=== PATIENT | male | born 1955 | race Caucasian/White ===

== ENCOUNTER 2018-04-30 16:10 | Observation (INO) | payer BC, SELFPAY ==
[2018-04-30 16:11] VITALS: BP 143/83; PULSE 95; RESP 16; TEMP 37.8; O2SAT 98; BMI 33.5
--- NOTE | 2018-04-30 16:25 | CT_ITS ---
STUDY: CT ABDOMEN AND PELVIS WITH CONTRAST REASON FOR EXAM: Male, 63 years old. Painless jaundice RADIATION DOSAGE (If Supplied By Facility): CTDIvol = ( 16.56 ) mGy, DLP = ( 1285.93 ) mGycm TECHNIQUE: Transaxial images were obtained from the dome of the diaphragm to the symphysis pubis without oral contrast. 100 ml of Isovue 300 contrast was administered. Sagittal and coronal images were reconstructed. Individualized dose optimization techniques were used for this CT. COMPARISON: None. FINDINGS: The visualized lung bases are unremarkable. The visualized portions of the heart are within normal limits. Normal liver. There is a questionable 2.2 cm nodular density adjacent to the caudate lobe. Mild wall thickening of the gallbladder with mucosal enhancement. No significant dilatation of the extrahepatic biliary system. Normal spleen. Normal pancreas. Normal bilateral adrenal glands. Up to 7.1 cm cysts are noted in the right kidney. 6 mm cyst in the left kidney. Small hiatal hernia. Normal small intestine. Mild diverticulosis of colon. The appendix is visualized and appears normal. Calcified abdominal aorta. Normal inferior vena cava. Subcentimeter nodes in the retroperitoneum. Normal urinary bladder. Trace pelvic fluid. Small fatty umbilical hernia. Mild degenerative vertebral changes. Spondylolysis of L5. CT/Abdomen/Pelvis W IV Cont ONLY IMPRESSION: Mild wall thickening of the gallbladder. Questionable nodular density adjacent to the caudate lobe of the liver. Mild colonic diverticulosis. Bilateral renal cysts. Small hiatal hernia. Small fatty umbilical hernia. Trace pelvic fluid. Electronically Signed: Alan Christopher DO at 18:34 EDT Tel [phone], Service support ,
--- NOTE | 2018-04-30 16:30 | ED.VISSUMM ---
- ER Visit Summary Date of Service: 04/30/18 Chief Complaint: Malaise and low-grade fever. History of Present Illness: The patient is a 63 M past medical history of reflux, elevated cholesterol and hypothyroidism. Patient has never had any abdominal other major surgeries. The last week and this has not felt well. Low-grade fever and malaise. Rectal bleeding was seen and evaluated his primary care physician who did labs which showed elevated liver enzymes. Primary care physician wanted further evaluation of him in the ER. Patient denies abdominal pain. Physical Examination: Well-appearing older male. Vital signs are stable. He has a low-grade temperature 100.1. He does not look septic or toxic. He is in no acute distress. H EENT exam unremarkable. No scleral icterus. Moist mucous membranes. Neck nontender no lymphadenopathy. Lungs clear to auscultation bilaterally. Heart regular rate and rhythm no murmur. Abdomen is soft and nontender. Normal bowel sounds no peritoneal signs. He is moving all 4 extremities. They are neurovascularly intact. No jaundice. Neurologically is awake and alert with no focal motor deficits. Back nontender. Test Results: Count is 6. Hemoglobin of 15. Electrolytes unremarkable. Creatinine 1.2. Normal gap. Liver enzymes are elevated including total and direct bilirubin. Alkaline phosphatase, ALT and AST. Lipase is normal. CT the abdomen and pelvis with IV contrast only showed a thickened gallbladder wall. Questionable nodular density of the liver. Incidental finding of renal cysts, hiatal hernia and umbilical hernia. Emergency Department Course and Treatment: Gentleman with reportedly elevated liver enzymes and no abdominal pain. Labs and CT abdomen pelvis be obtained with IV contrast. Treatment Plan: Repeat exam patient is doing well. He is in no distress. He and I and his discussed his test results. He was planning on a trip [facility] tomorrow. I explained to him I thought it was important that he had this evaluated before he would leave town due to the elevated liver enzymes. I discussed with the evaluation options and general surgeons that were available. He has chose a surgeon superintendent recreation. I spoke to Dr. Nick Gonzalez he wants me and also obtain a right upper quadrant ultrasound. He wants the patient to be admitted to the hospitalist group and he will be evaluating the patient in consultation. Currently he is taking the case to the operating room and will be available when that is done. I spoke to the hospitalist will be down to see the patient for evaluation and admission. Disposition: Admission Impression: Elevated liver enzymes Thickened gallbladder wall rule out cholecystitis This note was generated with [employer] dictation software. It may contain incorrect words, spelling, and punctuation that were not noted in review of the chart prior to signing ED Disposition - Plan for ED Patient: Chief Complaint: Abn Labs Referrals: Kalyan Aj MD [Primary Care Provider] -
--- NOTE | 2018-04-30 16:33 | ED.DCSUM_ITS ---
- ER Visit Summary Date of Service: 04/30/18 Chief Complaint: Malaise and low-grade fever. History of Present Illness: The patient is a 63 M past medical history of reflux , elevated cholesterol and hypothyroidism. Patient has never had any abdominal other major surgeries. The last week and this has not felt well. Low-grade fever and malaise. Rectal bleeding was seen and evaluated his primary care physician who did labs which showed elevated liver enzymes. Primary care physician wanted further evaluation of him in the ER. Patient denies abdominal pain. Physical Examination: Well-appearing older male. Vital signs are stable. He has a low-grade temperature 100.1. He does not look septic or toxic. He is in no acute distress. H EENT exam unremarkable. No scleral icterus. Moist mucous membranes. Neck nontender no lymphadenopathy. Lungs clear to auscultation bilaterally. Heart regular rate and rhythm no murmur. Abdomen is soft and nontender. Normal bowel sounds no peritoneal signs. He is moving all 4 extremities. They are neurovascularly intact. No jaundice. Neurologically is awake and alert with no focal motor deficits. Back nontender. Test Results: Count is 6. Hemoglobin of 15. Electrolytes unremarkable. Creatinine 1.2. Normal gap. Liver enzymes are elevated including total and direct bilirubin. Alkaline phosphatase, ALT and AST. Lipase is normal. CT the abdomen and pelvis with IV contrast only showed a thickened gallbladder wall. Questionable nodular density of the liver. Incidental finding of renal cysts, hiatal hernia and umbilical hernia. Emergency Department Course and Treatment: Gentleman with reportedly elevated liver enzymes and no abdominal pain. Labs and CT abdomen pelvis be obtained with IV contrast. Treatment Plan: Repeat exam patient is doing well. He is in no distress. He and I and his discussed his test results. He was planning on a trip to the [facility] tomorrow. I explained to him I thought it was important that he had this evaluated before he would leave town due to the elevated liver enzymes. I discussed with the evaluation options and general surgeons that were available. He has chose a surgeon online content editor. I spoke to Dr. Nick Gonzalez he wants me and also obtain a right upper quadrant ultrasound. He wants the patient to be admitted to the hospitalist group and he will be evaluating the patient in consultation. Currently he is taking the case to the operating room and will be available when that is done. I spoke to the hospitalist will be down to see the patient for evaluation and admission. Disposition: Admission Impression: Elevated liver enzymes Thickened gallbladder wall rule out cholecystitis This note was generated with [employer] dictation software. It may contain incorrect words, spelling, and punctuation that were not noted in review of the chart prior to signing ED Disposition - Plan for ED Patient: Chief Complaint: Abn Labs Referrals: Kalyan Aj MD [Primary Care Provider] -
[2018-04-30 16:42] LABS: Absolute Lymphocyte Count 1.14 X10^3/ul (0.83-4.51); Absolute Neutrophil Count 2.1 X10^3/uL (2.0-7.7); Basophil# 0.13 X10^3/uL; Basophil% 2.1 % (0-1); Eosinophil# 1.52 X10^3/uL; Eosinophils% 24.7 % (0-5); Hematocrit 47.7 % (40-54); Hemoglobin 15.8 g/dl (13.0-16.5); Lymphocyte # 1.14 X10^3/ul (4.0); Lymphocyte % 18.5 % (19-41); Mean Corp Hgb Conc 33.1 g/gl (32-36); Mean Corpuscular Hgb 28.7 pg (27.0-32.0); Mean Corpuscular Volume 86.6 fL (80-94); Monocyte# 1.23 X10^3/uL; Neutrophil # 2.11 X10^3/uL (2.7-7.7); Neutrophil % 34.4 % (47-70); POSITIVE COUNT NO; POSITIVE DIFFERENTIAL NO; POSITIVE MORPHOLOGY NO; Platelet Count 159 K/mm3 (150-450); RBC Distribution Width CV 14.4 % (11.6-14.6); Red Blood Count 5.51 M/mm3 (4.6-6.2); White Blood Count 6.2 K/mm3 (4.4-11.0)
[2018-04-30 17:18] LABS: AST(SGOT) 1176 U/L (15-37); Alanine Aminotransfer ALT/SGPT 2381 U/L (16-61); Albumin, Serum 3.6 g/dL (3.2-5.0); Alkaline Phosphatase 416 U/L (45-117); Anion Gap 7 (5-15); BUN 18 mg/dL (7-18); BUN/Creat Ratio 14.1 RATIO (10-20); Bilirubin, Direct 1.62 mg/dL (0.00-0.30); Calcium,Total 8.4 mg/dL (8.5-10.1); Chloride 104 mmol/L (98-107); Creatinine, Serum 1.28 mg/dL (0.70-1.30); EST Glomerular Filtration Rate 60 mL/min (>60); Est Glom Filt Rate - Afr Amer 73 mL/min (>60); Estimated Creatinine Clearance 63.99 ml/min; Globulin 3.7 g/dL (2.2-4.2); Glucose 133 mg/dL (74-106); Lipase 296 U/L (73-393); Potassium 3.6 mmol/L (3.5-5.1); Protein, Total 7.3 g/dL (6.4-8.2); Sodium Level 137 mmol/L (136-145)
--- NOTE | 2018-04-30 17:18 | ED.RN ---
alt 2381 and ast 1176 called from the lab dr hewitt aware
[2018-04-30 18:04] LABS: Bacteria 0 SEEN /hpf (None Seen); Mucous, Urine 0 SEEN /hpf (<or=2+); Squamous Epithelial Cells - UA 0 SEEN /hpf (0-5); White Blood Cells 0 SEEN /hpf (0-5)
[2018-04-30 18:29] LABS: Color, Urine Amber (Yellow); Glucose, Dipstick Normal (Normal); Ketone-Dipstick Negative (Negative); Leukocyte Esterase-Dipstick 25 /ul (Negative); Nitrite-Dipstick Negative (Negative); Occult Blood-Urine 250 /ul (Negative); Protein-Dipstick 15 mg/dl (Negative); Urine Clarity Clear (Clear); Urine Urobilinogen 8 mg/dl (Normal)
[2018-04-30 18:36] LABS: Red Blood Cells-Urine 0-5 SEEN /hpf (0-5); Urine Bilirubin Dipstick 3 mg/dL (Negative)
--- NOTE | 2018-04-30 19:00 | PCM.HP.STD ---
Problem List (1) Acute cholecystitis Status: Acute (2) Hyperglycemia Status: Acute (3) Elevated liver enzymes Status: Acute (4) Hypothyroidism Status: Chronic Qualifiers: Hypothyroidism type: unspecified Qualified Code(s): E03.9 - Hypothyroidism, unspecified (5) Hyperlipidemia Status: Chronic Qualifiers: Hyperlipidemia type: unspecified Qualified Code(s): E78.5 - Hyperlipidemia, unspecified (6) GERD (gastroesophageal reflux disease) Status: Chronic History of Present Illness Date of Admission: 04/30/18 Chief Complaint: Abnormal Labs, Malaise The [facility] 63 [facility]/ PMHx: Hypothyroidism, Hyperlipidemia, GERD, Obesity who presents to the [facility] ED on 04/30/18 with history of general malaise, fatigue, decreased appetite as well as darkened urine and increased sleep for approximately 1 week without any associated fevers and chills nor nausea or emesis however he does note abdominal fullness with minimal oral intake. Patient was evaluated by his primary care physician secondary to these ongoing complaints and outpatient labs were obtained with remarkable elevated liver enzymes which he notes were previously appropriate as he has these checked annually for his concurrent usage of a statin and given the abnormality and ongoing symptoms he was directed to the emergency room per his primary care physician. Upon evaluation patient did have some scratch saavedra and upon further questioning did admit to recent increased pruritus over the last 1-2 days. Upon ED presentation vital signs with T 100.1, heart rate 95, BP 143/83, respiratory rate 16, 98% room air, CBC with WBC 6.2, hemoglobin 15.8, platelet 159 without market left shift, unremarkable lipase, CMP with glucose 133, total bilirubin 2.3, direct bilirubin 1.62, AST/ALT 1176/2381, urinalysis with mildly elevated specific gravity otherwise not market appearing, CT abdomen and pelvis with mild wall thickening of the gallbladder with questionable nodular density adjacent to the caudate lobe of the liver, mild colonic diverticulosis, bilateral renal cyst, small hiatal hernia, small fatty umbilical hernia, trace pelvic fluid. Dr. Gonzalez, surgeon was consulted per the emergency room secondary to concerns for acute cholecystitis as etiology for current presentation. Surgeon requested given atypical presentation without market pain admission to the medical service and he noted intention to evaluate the patient following his current operative interventions on the evening of presentation. IV fluids and Zosyn administered in the ED. Past Medical History Past Medical History (Chronic Problems): Chronic Problems Hypothyroidism (Chronic) Hyperlipidemia (Chronic) GERD (gastroesophageal reflux disease) (Chronic) Allergies No Known Allergies Allergy (Verified 04/30/18 16:14) Home Medications: Ambulatory Orders Medication Instructions Recorded Atorvastatin Calcium [Lipitor] 20 mg PO QHS 02/13/14 Levothyroxine [Synthroid] 112 mcg PO DAILY 02/13/14 Omeprazole [Prilosec] 20 mg PO DAILY 02/13/14 Surgical History: - - Dental extraction Psychiatric History: No pertinent psych hx Lives: Spouse/ Significant Other Smoking Status: Never smoker Tobacco Use: Non-smoker Alcohol: None Drugs: None - *Family History Maternal History Items: - - Mother with a history of late onset Alzheimer's disease. Paternal History Items: - - Father with a history of [place], coronary disease requiring AICD placement in his 80s. Review of Systems Constitutional: Reports: Anorexia, Malaise, Fatigue. Denies: Chills, Fever, Weight Change HEENT: Denies: Head Aches, Sinus Congestion, Sinus Drainage Cardiovascular: Denies: Chest Pain, Palpitations Respiratory: Denies: Cough, Shortness of breath at rest, Sputum production Gastrointestinal: Reports: - - Abdominal fullness sensation only. Denies: Abdominal Pain, Nausea, Vomiting Genitourinary: Reports: - - Dark appearing urine.. Denies: Dysuria Musculoskeletal: Denies: Joint Pain, Joint Tenderness Skin: Reports: - - Mild pruritus noted.. Denies: Rash, Wounds Neurological: Denies: Numbness, Tingling, Focal weakness Psychiatric: Denies: Anxiety, Depression, Homicidal Ideations, Suicidal Ideations Hematologic/ Lymphatic: Denies: Easy Bruising, Easy Bleeding VTE Information - Inpt Only VTE Present on Admission: No VTE Mechan Device Prophylaxis: SCD's VTE Pharm Prophylaxis ordered?: Yes Subjective: Seated upright in the ED bed, no acute distress, denies any ongoing discomfort. Objective: Physical Examination: General: awake, alert, oriented x 3 and cooperative, seated upright in bed in no apparent distress. Skin: not markedly jaundiced, but sallow appearing, normal turgor, no cyanosis. HEENT: AT/NC, EOMI, PERRLA, dry MM, no carotid bruits or JVD noted. Lungs: CTA bilaterally, moderate effort, mild decrease BL bases, no rales, ronchi or wheezing. Heart: Regular rate and rhythm; no gallop, rub audible. Abdomen: soft, obese, NTTP including RUQ/epigastric region, ND, normal BS, no HSM. Extremities: no cyanosis, clubbing, or edema. Neurological: patient awake, alert, oriented x 3; cognitive function intact; pupils equally reactive to light and accomodation; cranial nerves II-XII grossly normal, moving all 4 extremities, no focal deficits, strength mildly globally decreased. Psychiatric: affect appears normal, no acute evidence of depressive or anxiety feelings. - Physical Exam Vital Signs Temp Pulse Resp BP Pulse Ox 100.1 F H 95 16 143/83 H 98 04/30/18 16:11 04/30/18 16:11 04/30/18 16:11 04/30/18 16:11 04/30/18 16:11 Oxygen Delivery Method Room Air Weight: 246 lb 14.684 oz Body Mass Index (BMI) 33.5 Laboratory Tests Past 24 Hrs 04/30/18 04/30/18 04/30/18 16:25 16:25 17:55 WBC 6.2 RBC 5.51 Hgb 15.8 Hct 47.7 MCV 86.6 MCH 28.7 MCHC 33.1 RDW 14.4 RDW Differential 46.0 H Plt Count 159 MPV 9.0 Immature Gran % (Auto) 0.300 Neut % (Auto) 34.4 L Lymph % (Auto) 18.5 L Rooks % (Auto) 20.0 H Eos % (Auto) 24.7 H Baso % (Auto) 2.1 H Absolute Neuts (auto) 2.1 Absolute Lymphs (auto) 1.14 Total Counted Not Reportable Sodium 137 Potassium 3.6 Chloride 104 Carbon Dioxide 26.0 Anion Gap 7 BUN 18 Creatinine 1.28 Estim Creat Clear Calc 63.99 Est GFR (MDRD) Af Amer 73 Est GFR (MDRD) Non-Af 60 BUN/Creatinine Ratio 14.1 Glucose 133 H Calcium 8.4 L Total Bilirubin 2.30 H Direct Bilirubin 1.62 H AST 1176 H ALT 2381 H Alkaline Phosphatase 416 H Total Protein 7.3 Albumin 3.6 Globulin 3.7 Lipase 296 Urine Color Samantha Urine Clarity Clear Urine pH 6.0 Ur Specific [place] 1.020 Urine Protein 15 H Urine Glucose (UA) Normal Urine Ketones Negative Urine Occult Blood 250 H Urine Nitrite Negative Urine Bilirubin 3 H Urine Urobilinogen 8 H Ur Leukocyte Esterase 25 H Urine RBC 0-5 SEEN Urine WBC 0 SEEN Ur Squamous Epith Cells 0 SEEN Urine Bacteria 0 SEEN Urine Mucus 0 SEEN Assessment/Plan All Active Problems Hyperglycemia (Acute) Elevated liver enzymes (Acute) Acute cholecystitis (Acute) The patient is a 63 y/o M, [facility] w/ PMHx: Hypothyroidism, Hyperlipidemia, GERD, Obesity who presents to the [facility] ED on 04/30/18 with history of general malaise, fatigue, decreased appetite as well as darkened urine and increased sleep for approximately 1 week without any associated fevers and chills nor nausea or emesis however he does note abdominal fullness with minimal oral intake. (1) Elevated Liver Enzymes, Bilirubin w/ ? Acute Cholecystitis, Atypical Presentation: T 100.1, heart rate 95, BP 143/83, respiratory rate 16, 98% room air, CBC with WBC 6.2, hemoglobin 15.8, platelet 159 without market left shift, unremarkable lipase, CMP with glucose 133, total bilirubin 2.3, direct bilirubin 1.62, AST/ALT 1176/2381, urinalysis with mildly elevated specific gravity otherwise not market appearing, CT abdomen and pelvis with mild wall thickening of the gallbladder with questionable nodular density adjacent to the caudate lobe of the liver. Will admit to [facility], maintain on IVFs, NPO, PPI, IV/po pain control, trend lipase, CMP. Will obtain RUQ US. Continue IV zosyn. Pending Surgery evaluation. (2) Hyperglycemia: Admission glucose 133, will obtain hemoglobin A1c. (3) Hyperlipidemia: Hold statin given elevated enzymes. (4) Hypothyroidism: Continue home synthroid regimen. (5) Obesity: Weight loss and lifestyle changes encouraged. (6) GERD: IV PPI. (7) DVT prophylaxis: SCD, Lovenox with hold at surgeon discretion pending her evaluation this evening. Code Visit Inpatient E&M: 80437 Init Hosp L2
--- NOTE | 2018-04-30 19:01 | US_ITS ---
STUDY: ABDOMINAL ULTRASOUND - RIGHT UPPER QUADRANT REASON FOR VISIT: Male, 63 years old. Elevated liver enzymes TECHNIQUE: Ultrasound evaluation of the right upper quadrant was performed with real-time and static robles-scale imaging. TECHNICAL QUALITY: Adequate. COMPARISON: None. FINDINGS: Liver: The liver measures 17.5 cm. There is normal echogenicity of the liver. The bile ducts are within normal limits. There is hepatic color flow. The direction of portal flow is hepatopetal. There is no demonstrated mass lesion. Gallbladder: Normal distended gallbladder. The gallbladder wall measures 5 mm. There is a negative sonographic Garcia's sign. There is trace pericholecystic fluid. There are no gallstones. Common Bile Duct (C.B.D.): The common bile duct measures 4 mm. Pancreas: Limited visualization of the pancreas. Right Kidney: Normal size of the right kidney. The right kidney measures 12.9 x 6.2 x 6.0 cm. Normal renal cortex. The right cortex measures 1.6 cm. There is a 6.7 cm cyst. There is no right hydronephrosis. US/Gallbladder IMPRESSION: Gallbladder wall thickening and trace pericholecystic fluid. Right renal cyst. Electronically Signed: Alan Christopher DO at 20:38 EDT Tel [phone], Service support ,
--- NOTE | 2018-04-30 19:03 | HP.PCM_ITS ---
Problem List (1) Acute cholecystitis Status: Acute (2) Hyperglycemia Status: Acute (3) Elevated liver enzymes Status: Acute (4) Hypothyroidism Status: Chronic Qualifiers: Hypothyroidism type: unspecified Qualified Code(s): E03.9 - Hypothyroidism , unspecified (5) Hyperlipidemia Status: Chronic Qualifiers: Hyperlipidemia type: unspecified Qualified Code(s): E78.5 - Hyperlipidemia , unspecified (6) GERD (gastroesophageal reflux disease) Status: Chronic History of Present Illness Date of Admission: 04/30/18 Chief Complaint: Abnormal Labs, Malaise The [facility] 63 [facility]/ PMHx: Hypothyroidism, Hyperlipidemia, GERD, Obesity who presents to the [facility] ED on 04/30/18 with history of general malaise, fatigue, decreased appetite as well as darkened urine and increased sleep for approximately 1 week without any associated fevers and chills nor nausea or emesis however he does note abdominal fullness with minimal oral intake. Patient was evaluated by his primary care physician secondary to these ongoing complaints and outpatient labs were obtained with remarkable elevated liver enzymes which he notes were previously appropriate as he has these checked annually for his concurrent usage of a statin and given the abnormality and ongoing symptoms he was directed to the emergency room per his primary care physician. Upon evaluation patient did have some scratch saavedra and upon further questioning did admit to recent increased pruritus over the last 1-2 days. Upon ED presentation vital signs with T 100.1, heart rate 95 , BP 143/83, respiratory rate 16, 98% room air, CBC with WBC 6.2, hemoglobin 15.8, platelet 159 without market left shift, unremarkable lipase, CMP with glucose 133, total bilirubin 2.3, direct bilirubin 1.62, AST/ALT 1176/2381, urinalysis with mildly elevated specific gravity otherwise not market appearing , CT abdomen and pelvis with mild wall thickening of the gallbladder with questionable nodular density adjacent to the caudate lobe of the liver, mild colonic diverticulosis, bilateral renal cyst, small hiatal hernia, small fatty umbilical hernia, trace pelvic fluid. Dr. Gonzalez, surgeon was consulted per the emergency room secondary to concerns for acute cholecystitis as etiology for current presentation. Surgeon requested given atypical presentation without market pain admission to the medical service and he noted intention to evaluate the patient following his current operative interventions on the evening of presentation. IV fluids and Zosyn administered in the ED. Past Medical History Past Medical History (Chronic Problems): Chronic Problems Hypothyroidism (Chronic) Hyperlipidemia (Chronic) GERD (gastroesophageal reflux disease) (Chronic) Allergies No Known Allergies Allergy (Verified 04/30/18 16:14) Home Medications: Ambulatory Orders Medication Instructions Recorded Atorvastatin Calcium [Lipitor] 20 mg PO QHS 02/13/14 Levothyroxine [Synthroid] 112 mcg PO DAILY 02/13/14 Omeprazole [Prilosec] 20 mg PO DAILY 02/13/14 Surgical History: - - Dental extraction Psychiatric History: No pertinent psych hx Lives: Spouse/ Significant Other Smoking Status: Never smoker Tobacco Use: Non-smoker Alcohol: None Drugs: None - *Family History Maternal History Items: - - Mother with a history of late onset Alzheimer's disease. Paternal History Items: - - Father with a history of ME, coronary disease requiring AICD placement in his 80s. Review of Systems Constitutional: Reports: Anorexia, Malaise, Fatigue. Denies: Chills, Fever, Weight Change HEENT: Denies: Head Aches, Sinus Congestion, Sinus Drainage Cardiovascular: Denies: Chest Pain, Palpitations Respiratory: Denies: Cough, Shortness of breath at rest, Sputum production Gastrointestinal: Reports: - - Abdominal fullness sensation only. Denies: Abdominal Pain, Nausea, Vomiting Genitourinary: Reports: - - Dark appearing urine.. Denies: Dysuria Musculoskeletal: Denies: Joint Pain, Joint Tenderness Skin: Reports: - - Mild pruritus noted.. Denies: Rash, Wounds Neurological: Denies: Numbness, Tingling, Focal weakness Psychiatric: Denies: Anxiety, Depression, Homicidal Ideations, Suicidal Ideations Hematologic/ Lymphatic: Denies: Easy Bruising, Easy Bleeding VTE Information - Inpt Only VTE Present on Admission: No VTE Mechan Device Prophylaxis: SCD's VTE Pharm Prophylaxis ordered?: Yes Subjective: Seated upright in the ED bed, no acute distress, denies any ongoing discomfort. Objective: Physical Examination: General: awake, alert, oriented x 3 and cooperative, seated upright in bed in no apparent distress. Skin: not markedly jaundiced, but sallow appearing, normal turgor, no cyanosis. HEENT: AT/NC, EOMI, PERRLA, dry MM, no carotid bruits or JVD noted. Lungs: CTA bilaterally, moderate effort, mild decrease BL bases, no rales, ronchi or wheezing. Heart: Regular rate and rhythm; no gallop, rub audible. Abdomen: soft, obese, NTTP including RUQ/epigastric region, ND, normal BS, no HSM. Extremities: no cyanosis, clubbing, or edema. Neurological: patient awake, alert, oriented x 3; cognitive function intact; pupils equally reactive to light and accomodation; cranial nerves II-XII grossly normal, moving all 4 extremities, no focal deficits, strength mildly globally decreased. Psychiatric: affect appears normal, no acute evidence of depressive or anxiety feelings. - Physical Exam Vital Signs Temp Pulse Resp BP Pulse Ox 100.1 F H 95 16 143/83 H 98 04/30/18 16:11 04/30/18 16:11 04/30/18 16:11 04/30/18 16:11 04/30/18 16:11 Oxygen Delivery Method Room Air Weight: 246 lb 14.684 oz Body Mass Index (BMI) 33.5 Laboratory Tests Past 24 Hrs 04/30/18 04/30/18 04/30/18 16:25 16:25 17:55 WBC 6.2 RBC 5.51 Hgb 15.8 Hct 47.7 MCV 86.6 MCH 28.7 MCHC 33.1 RDW 14.4 RDW Differential 46.0 H Plt Count 159 MPV 9.0 Immature Gran % (Auto) 0.300 Neut % (Auto) 34.4 L Lymph % (Auto) 18.5 L [place] % (Auto) 20.0 H Eos % (Auto) 24.7 H Baso % (Auto) 2.1 H Absolute Neuts (auto) 2.1 Absolute Lymphs (auto) 1.14 Total Counted Not Reportable Sodium 137 Potassium 3.6 Chloride 104 Carbon Dioxide 26.0 Anion Gap 7 BUN 18 Creatinine 1.28 Estim Creat Clear Calc 63.99 Est GFR (MDRD) Af Amer 73 Est GFR (MDRD) Non-Af 60 BUN/Creatinine Ratio 14.1 Glucose 133 H Calcium 8.4 L Total Bilirubin 2.30 H Direct Bilirubin 1.62 H AST 1176 H ALT 2381 H Alkaline Phosphatase 416 H Total Protein 7.3 Albumin 3.6 Globulin 3.7 Lipase 296 Urine Color Samantha Urine Clarity Clear Urine pH 6.0 Ur Specific [place] 1.020 Urine Protein 15 H Urine Glucose (UA) Normal Urine Ketones Negative Urine Occult Blood 250 H Urine Nitrite Negative Urine Bilirubin 3 H Urine Urobilinogen 8 H Ur Leukocyte Esterase 25 H Urine RBC 0-5 SEEN Urine WBC 0 SEEN Ur Squamous Epith Cells 0 SEEN Urine Bacteria 0 SEEN Urine Mucus 0 SEEN Assessment/Plan All Active Problems Hyperglycemia (Acute) Elevated liver enzymes (Acute) Acute cholecystitis (Acute) The patient is a 63 y/o M, [facility] w/ PMHx: Hypothyroidism, Hyperlipidemia, GERD, Obesity who presents to the [facility] ED on 04/30/18 with history of general malaise, fatigue, decreased appetite as well as darkened urine and increased sleep for approximately 1 week without any associated fevers and chills nor nausea or emesis however he does note abdominal fullness with minimal oral intake. (1) Elevated Liver Enzymes, Bilirubin w/ ? Acute Cholecystitis, Atypical Presentation: T 100.1, heart rate 95, BP 143/83, respiratory rate 16, 98% room air, CBC with WBC 6.2, hemoglobin 15.8, platelet 159 without market left shift, unremarkable lipase, CMP with glucose 133, total bilirubin 2.3, direct bilirubin 1.62, AST/ALT 1176/2381, urinalysis with mildly elevated specific gravity otherwise not market appearing, CT abdomen and pelvis with mild wall thickening of the gallbladder with questionable nodular density adjacent to the caudate lobe of the liver. Will admit to MS, maintain on IVFs, NPO, PPI, IV/po pain control, trend lipase, CMP. Will obtain RUQ US. Continue IV zosyn. Pending Surgery evaluation. (2) Hyperglycemia: Admission glucose 133, will obtain hemoglobin A1c. (3) Hyperlipidemia: Hold statin given elevated enzymes. (4) Hypothyroidism: Continue home synthroid regimen. (5) Obesity: Weight loss and lifestyle changes encouraged. (6) GERD: IV PPI. (7) DVT prophylaxis: SCD, Lovenox with hold at surgeon discretion pending her evaluation this evening. Code Visit Inpatient E&M: 43318 Init Hosp L2
[2018-04-30 19:49] VITALS: BP 118/99; PULSE 88; PULSE 89; RESP 17; TEMP 37.1; O2SAT 96
[2018-04-30] MEDS: Piperacil/Tazobactam 4.5 GM in NS100 MBP IV (19:50)
[2018-04-30 20:16] VITALS: BMI 33.1
[2018-04-30 20:20] VITALS: BMI 33.2
[2018-04-30 20:28] VITALS: BP 138/76; PULSE 85; RESP 16; TEMP 37.9; O2SAT 95
[2018-04-30 21:11] LABS: Magnesium 2.2 mg/dL (1.6-2.6)
[2018-04-30 21:26] LABS: Hemoglobin A1c 5.7 % (4.2-6.3)
[2018-04-30] MEDS: 0.9% Normal Saline 1,000 ML 150 ML IV (21:27)
--- NOTE | 2018-04-30 21:31 | CON.PCM_ITS ---
Problem List (1) Elevated liver enzymes Status: Acute Reason for Consult Date of Consultation: 04/30/18 History of Present Illness: The patient is a 63 year old M presents with a one-week history of malaise and nausea and possible low-grade fever. I am being asked to see him by Dr. Michelle Gardiner for surgical consultation and written copy my surgical consult will be returned to her. The patient is rather nonspecific. One week ago he developed malaise. He noted dark color urine. He noted some pruritus. He was in [facility] at that time. Otherwise he has not been traveling. He denies any unusual food intake. Particularly no raw food intake. He then was seen by Dr. Aj his primary care physician yesterday morning. Yesterday urinalysis showed a small amount of bilirubin. Specific gravity was 1.030. A large amount of hemoglobin/blood. Then laboratory was obtained today showing a total bilirubin of 2.2 and alkaline phosphatase of 323 and AST of 943 and a BUN of 16 and creatinine of 1.35 the ALT was 2017. White blood cell count was 7.29 with a hemoglobin 15.4 hematocrit 48.9 and a platelet count of 187,000. Absolute monocytes were high at 0.99 absolute eosinophils are markedly elevated at 1.73 with high normal being less than 0.46 absolute basophils was high at 0.12 with high normal being 0.11. The patient was referred to the [facility] emergency room. Laboratory demonstrates a white count of 6.2 and a hemoglobin 15.8 hematocrit 47.7 and platelet count 159,000. Neutrophil percentage is 34.4. Lymphocyte percentage 18.5. Monocytes 20. Eosinophils 24.7. Basophils 2.1. Total bilirubin is 2.3 with a direct bilirubin of 1.62. AST is 1176. ALT is 2381. Alkaline phosphatase 416. The patient was noted to have a low-grade fever of 100.3. Blood pressure 138/76. BMI is 33.1 with a body weight of 244 pounds. It is pertinent that the symptoms the patient complains of her fatigue and wanting to rest. Intermittent nausea. He denies to me any significant abdominal pain. He did not take his temperature over the past week first temperature was recorded yesterday. He has not had a similar episode. Pertinent family history is notable for a maternal grandmother who had colon cancer. The patient denies bright red blood per rectum or melena. He has not had a colonoscopy for 11 years. He denies any personal history of colon polyps or cancer. He has not had any unexpected weight loss. He ate a cheese sandwich for lunch today. This did not cause any increase in abdominal pain. The CT scan which showed possible nodule near the caudate lobe of the liver. Thick-walled gallbladder. No stones. No biliary dilatation. No pancreatic mass. He had a gallbladder ultrasound confirming gallbladder wall thickening. No hepatic ductal dilatation Past Medical History Past Medical History (Chronic Problems): Chronic Problems Hypothyroidism (Chronic) Hyperlipidemia (Chronic) GERD (gastroesophageal reflux disease) (Chronic) Allergies No Known Allergies Allergy (Verified 04/30/18 16:14) Home Medications: Ambulatory Orders Medication Instructions Recorded Atorvastatin Calcium [Lipitor] 20 mg PO QHS 02/13/14 Levothyroxine [Synthroid] 112 mcg PO DAILY 02/13/14 Omeprazole [Prilosec] 20 mg PO QHS 02/13/14 Surgical History: no surgical history, - - Dental extraction Psychiatric History: No pertinent psych hx Lives: Spouse/ Significant Other Smoking Status: Never smoker Tobacco Use: Non-smoker Alcohol: None Drugs: None - *Family History Maternal History Items: - - Mother with a history of late onset Alzheimer's disease. Paternal History Items: - - Father with a history of [place], coronary disease requiring AICD placement in his 80s. Review of Systems Constitutional: Reports: Anorexia, Chills, Fever, Malaise Eyes: Denies: Blurred vision HEENT: Denies: Difficulty Swallowing Cardiovascular: Denies: Chest Pain Respiratory: Denies: Cough Gastrointestinal: Denies: Abdominal Pain Genitourinary: Reports: - - Dark colored urine Musculoskeletal: Denies: Leg Pain Skin: Reports: - - Pruritus Neurological: Denies: Balance problems Psychiatric: Denies: Anxiety Endocrine: Denies: Change in Body Habitus Hematologic/ Lymphatic: Denies: Adenopathy - Physical Exam General: Alert, Oriented x3, Cooperative, No apparent distress HEENT: Atraumatic Oral: Moist Mucosa Neck: Supple, No JVD, Negative Carotid Bruits Lungs: Clear to auscultation Cardiovascular: Regular rate, Regular Rhythm Abdomen: Bowel Sounds Present, Soft, Non Tender, - - Mildly distended no mass Extremities: No clubbing Musculoskeletal: No Muscle Wasting Lymphatic: No Cervical, Supraclavicular, or Inguinal Adenopathy Neurological: Cranial nerves II-XII grossly intact Psych/Mental Status: Normal Affect Vital Signs Temp Pulse Resp BP Pulse Ox 100.3 F H 85 16 138/76 H 95 04/30/18 20:28 04/30/18 20:28 04/30/18 20:28 04/30/18 20:28 04/30/18 20:28 Oxygen Delivery Method Room Air Weight: 244 lb 9.6 oz Body Mass Index (BMI) 33.1 Assessment/Plan All Active Problems Hyperglycemia (Acute) Elevated liver enzymes (Acute) Acute cholecystitis (Acute) This is an unusual presentation for 63-year-old gentleman with elevated liver function tests abnormal gallbladder on imaging and yet no complaints of abdominal pain and no tenderness on examination. He has very active bowel sounds. There is a significantly abnormal differential with marked eosinophilia. He is not presenting consistent with acute acalculous cholecystitis. Certainly possibility of malignancy exists. I recommend that we repeat laboratory tomorrow morning. I recommend that we obtain an MRI of the liver. It would also be a consideration to consult gastroenterology regarding the patient's presentation and abnormal liver function tests prior to consider proceeding with any type of surgery. Even if this is a 1-week-old acalculous cholecystitis the surgery for this will be technically challenging with increased risk for complication and bleeding I have explained to the patient my concerns regarding his atypical presentation. We will pursue further investigation prior to making definitive surgical recommendations. I appreciate the opportunity of assisting with surgical care Nick Gonzalez M.D., F.A.C.S.
[2018-04-30 23:55] VITALS: O2SAT 92
[2018-05-01] MEDS: Piperacil/Tazobactam 3.375 GM/50 ML ML IV ×2 (00:14→06:06)
[2018-05-01 02:36] VITALS: BP 124/72; PULSE 64; RESP 16; TEMP 37.3; O2SAT 95
[2018-05-01] MEDS: 0.9% Normal Saline 1,000 ML 150 ML IV (04:45)
[2018-05-01 06:04] LABS: Absolute Lymphocyte Count 1.12 X10^3/ul (0.83-4.51); Absolute Neutrophil Count 2.3 X10^3/uL (2.0-7.7); Basophil# 0.11 X10^3/uL; Basophil% 1.9 % (0-1); Eosinophil# 1.42 X10^3/uL; Eosinophils% 23.9 % (0-5); Hemoglobin 14.2 g/dl (13.0-16.5); Lymphocyte # 1.12 X10^3/ul (4.0); Lymphocyte % 18.9 % (19-41); Mean Corpuscular Hgb 28.7 pg (27.0-32.0); Mean Corpuscular Volume 86.9 fL (80-94); Mean Platelet Vol. 9.3 fl (6.2-12.0); Monocyte# 0.93 X10^3/uL; Monocyte% 15.7 % (0-10); Neutrophil % 38.8 % (47-70); Platelet Count 167 K/mm3 (150-450); RBC Distribution Width CV 14.7 % (11.6-14.6); RBC Distribution Width SD 46.1 fl (35.1-43.9); Red Blood Count 4.95 M/mm3 (4.6-6.2); White Blood Count 5.9 K/mm3 (4.4-11.0)
[2018-05-01] MEDS: Levothyroxine 112 MCG Tablet PO (06:06)
[2018-05-01 06:13] LABS: POSITIVE COUNT NO; POSITIVE DIFFERENTIAL NO; POSITIVE MORPHOLOGY NO
--- NOTE | 2018-05-01 06:19 | PN.SURG_ITS ---
Subjective: Pt states he feels notably better than yesterday. Doesn't feel feverish. No pain whatsoever. He is hungry and would like to eat. Urine visibly remains dark - Physical Exam Abdomen: Bowel Sounds Present, Soft, Non Tender Vital Signs Temp Pulse Resp BP Pulse Ox 99.1 F 64 16 124/72 H 95 05/01/18 02:36 05/01/18 02:36 05/01/18 02:36 05/01/18 02:36 05/01/18 02:36 Oxygen Delivery Method Room Air Weight: 244 lb 9.6 oz Body Mass Index (BMI) 33.1 Intake and Output for Last 24 Hours 04/29/18 04/30/18 05/01/18 23:59 23:59 23:59 Intake Total 1625 / 1625 Output Total 500 / 500 Balance 1125 / 1125 Laboratory Tests Past 24 Hrs 05/01/18 05/01/18 05:54 05:54 WBC 5.9 RBC 4.95 Hgb 14.2 Hct 43.0 MCV 86.9 MCH 28.7 MCHC 33.0 RDW 14.7 H RDW Differential 46.1 H Plt Count 167 MPV 9.3 Immature Gran % (Auto) 0.800 Neut % (Auto) 38.8 L Lymph % (Auto) 18.9 L [place] % (Auto) 15.7 H Eos % (Auto) 23.9 H Baso % (Auto) 1.9 H Absolute Neuts (auto) 2.3 Absolute Lymphs (auto) 1.12 Total Counted Not Reportable Sodium Pending Potassium Pending Chloride Pending Carbon Dioxide Pending Anion Gap Pending BUN Pending Creatinine Pending Est GFR (MDRD) Af Amer Pending Est GFR (MDRD) Non-Af Pending BUN/Creatinine Ratio Pending Glucose Pending Calcium Pending Total Bilirubin Pending AST Pending ALT Pending Alkaline Phosphatase Pending Total Protein Pending Albumin Pending Lipase Pending Medical Necessity - Tobacco Use Smoking Status: Never smoker Tobacco Use: Non-smoker Assessment/Plan All Active Problems Hyperglycemia (Acute) Elevated liver enzymes (Acute) Acute cholecystitis (Acute) Abdominal exam is completely benign. Abnormal differential and elevated LFTs despite no pain remains very concerning for atypical process/ possible malignancy of GB/ possible hepatitis Awaiting repeat labs and MRI Findings do not suggest acute cholecystitis Will also check hepatitis profile as pt is fitting this description as well
[2018-05-01 06:43] LABS: AST(SGOT) 1119 U/L (15-37); Alanine Aminotransfer ALT/SGPT 2150 U/L (16-61); Albumin, Serum 3.1 g/dL (3.2-5.0); Alkaline Phosphatase 350 U/L (45-117); Anion Gap 8 (5-15); BUN 19 mg/dL (7-18); BUN/Creat Ratio 13.6 RATIO (10-20); Calcium,Total 7.8 mg/dL (8.5-10.1); Chloride 106 mmol/L (98-107); EST Glomerular Filtration Rate 54 mL/min (>60); Est Glom Filt Rate - Afr Amer 66 mL/min (>60); Estimated Creatinine Clearance 58.51 ml/min; Globulin 3.2 g/dL (2.2-4.2); Glucose 88 mg/dL (74-106); Lipase 316 U/L (73-393); Potassium 3.8 mmol/L (3.5-5.1); Protein, Total 6.3 g/dL (6.4-8.2); Sodium Level 142 mmol/L (136-145)
--- NOTE | 2018-05-01 07:00 | MRI_ITS ---
STUDY: MRI ABDOMEN WITH AND WITHOUT CONTRAST REASON FOR EXAM: Male, 63 years old. Elevated liver enzymes. Fatigue. TECHNIQUE: Standardized fat and water weighted pulse sequences were obtained in all 3 orthogonal planes post contrast administration. 10 ml of Gadavist contrast material was administered intravenously for the contrast portion of the examination. COMPARISON: CT and abdominal ultrasound dated April 30, 2018 FINDINGS: The visualized lung bases are unremarkable. The visualized portions of the heart are within normal limits. There is an enlarged celiac lymph node measuring up to 1.6 cm in short axis. There is an enlarged portal caval lymph node visualized as well measuring up to 2 cm in short axis. There is a 1.3 cm gastrohepatic lymph node. There is no additional prominent peripancreatic lymph node. There is mild periportal edema which may be secondary to recent intravenous rehydration. There is pericholecystic fluid present. There is mild gallbladder wall thickening. There is mild splenomegaly. Normal pancreas. Normal bilateral adrenal glands. There is a nonenhancing 7 cm right renal cyst. Normal left kidney. Normal visualized stomach. There is mild proximal duodenal wall thickening associated with edema. Normal colon. There is non-visualization of the appendix. Normal abdominal aorta. Normal inferior vena cava. Normal retroperitoneum. Normal abdominal wall. Normal osseous structures. MRI/MRI Abd WITH and W/O Contrast IMPRESSION: Pericholecystic fluid associated with minimal gallbladder wall thickening, this may be reactive however cannot exclude underlying cholecystitis. Mild proximal duodenal thickening and edema, may be secondary to mild duodenitis. Enlarged celiac, gastrohepatic and periportal lymph nodes, these may be reactive however cannot entirely exclude a neoplastic process. Electronically Signed: Ana Calhoun MD at 10:47 EDT Tel , Service support ,
[2018-05-01 07:46] VITALS: BP 137/82; PULSE 64; RESP 18; TEMP 37.4; O2SAT 95
--- NOTE | 2018-05-01 08:01 | NURSING ---
Pt off unit to MRI.
[2018-05-01 09:07] LABS: Bilirubin, Direct 1.32 mg/dL (0.00-0.30)
--- NOTE | 2018-05-01 10:00 | PCM.DC ---
- Discharge Diagnoses Current Active Problems: hepatitis You will use the following diet at home:: Cardiac Your food should be the consistency of: Regular Your liquids should be the consistency of: Regular/Thin Discharge Activity: Return to Normal Activity Weight Bearing Status: Weight bearing as tolerated Additional Instructions: Please follow up with sewer contractor at [facility] tomorrow as scheduled Pending Tests on Discharge: hepatitis panel Allergies/Adverse Reactions: Allergies No Known Allergies Allergy (Verified 04/30/18 16:14) Medications to take at Discharge Levothyroxine [Synthroid] 112 mcg PO DAILY 02/13/14 Omeprazole [Prilosec] 20 mg PO QHS 02/13/14 Primary Care Physician: Kalyan Aj MD [Primary Care Provider] - Please follow up with your Primary Care Physician in: two weeks Test Results: Test results from this visit will be discussed in further detail at your follow-up appointment, if applicable. Proposed Discharge Date: 05/01/18
--- NOTE | 2018-05-01 10:02 | PCM.DC.SUM ---
Discharge Date and Diagnosis Date of Admission: 04/30/18 Date of Discharge: 05/01/18 - Secondary Discharge Diagnosis Chronic Problems Hypothyroidism (Chronic) Hyperlipidemia (Chronic) GERD (gastroesophageal reflux disease) (Chronic) Hospital Course and Treatment Imaging Results: 05/01/18 07:00 MRI Abd [MRI Abd WITH and W/O Contrast] [MRI] Urgent Diagnostic Data Abdomen/Pelvis CT 04/30/18 16:25 IMPRESSION: Mild wall thickening of the gallbladder. Questionable nodular density adjacent to the caudate lobe of the liver. Mild colonic diverticulosis. Bilateral renal cysts. Small hiatal hernia. Small fatty umbilical hernia. Trace pelvic fluid. Electronically Signed: Alan Christopher DO at 18:34 EDT Tel [phone], Service support , Gallbladder Ultrasound 04/30/18 19:01 IMPRESSION: Gallbladder wall thickening and trace pericholecystic fluid. Right renal cyst. Electronically Signed: Alan Christopher DO at 20:38 EDT Tel [phone], Service support , Abdomen MRI 05/01/18 07:00 IMPRESSION: Pericholecystic fluid associated with minimal gallbladder wall thickening, this may be reactive however cannot exclude underlying cholecystitis. Mild proximal duodenal thickening and edema, may be secondary to mild duodenitis. Enlarged celiac, gastrohepatic and periportal lymph nodes, these may be reactive however cannot entirely exclude a neoplastic process. Electronically Signed: Ana Calhoun MD at 10:47 EDT Tel , Service support , surgery Operations: None Procedures: None Summary of Care Provided: The patient is a 63 year old M with a PMH of hypothyroidism, hyperlipidemia, GERD and obesity who was admitted via the ED with a complaint of general malaise, fatigue, decreased appetite and dark urine. These had been zac on for ~ 1 week before admission. His PCP did labs which showed markedly elevated liver enzymes so he was admitted to be worked up for that. labs in the ED showed wbc of 6.2, hemoglobin of 15.8, and elevated eosinophils of 1.73 with upper limit being 0.46. CMP showed total bilirubin of 2.3, direct bilirubin of 1.62 and AST of 1176 and ALT of 2381. ALP was [address] abdomen done showed mild wall thickening of the gallbladder with questionable nodular density adjacent to the caudal loop of the liver as well as mild colonic diverticulosis. Right upper quadrant ultrasound showed liver 17.5 cm in size with no demonstrated mass lesion and normal distended gallbladder with gallbladder wall measuring 5 mm. General surgery was consulted on account of concerns for possible acalculous acute cholecystitis. General surgery reviewed and thought a calculus cholecystitis was less likely in light of patient's lack of fever and generally been asymptomatic. General surgery was worried about a possible malignancy so MRI of the abdomen was ordered which showed an enlarged celiac lymph node measuring up to 1.6 cm, and enlarged portal caval lymph node measuring up to 2 cm in axis and gastrohepatic lymph node measuring about 1.3 cm. There was also pericholecystic fluid present with mild gallbladder wall thickening. There was no visualized liver mass. Patient preferred to follow-up with [facility] and general surgeon Dr. Gonzalez arrange an appointment with the print line feeder of hepatology at [facility]. Diagnosis was still not clear at time of discharge and differentials include possible malignancy versus autoimmune or viral hepatitis. Hepatitis panel was pending at discharge. Patient was therefore discharged on 05/01/2018 to follow-up at [facility] on 05/02/18. [] Discharge Diet: 2000 mg Sodium Diet Discharge Activity: Return to Normal Activity Weight Bearing Status: Weight bearing as tolerated Home Medications: Medications to take at Discharge Levothyroxine [Synthroid] 112 mcg PO DAILY 02/13/14 Omeprazole [Prilosec] 20 mg PO QHS 02/13/14 Primary Care Physician: Kalyan Aj MD [Primary Care Provider] - Please follow up with your Primary Care Physician in: two weeks When: clinical informatics strategist at [facility] on 05/02/18 Pending Tests Upon Discharge: hepatitis panel Disposition: Home Minutes spent on discharge:: 40 Patient Condition:: Stable Medical Necessity - Tobacco Use Smoking Status: Never smoker Tobacco Use: Non-smoker Meaningful Use Info Meaningful Use Diagnoses (Choose all that apply): None applicable Code Visit Inpatient E&M: 46552 Disch Hosp
[2018-05-01 10:10] LABS: International Normalized Ratio 1.1; Prothrombin Time (Protime)PT. 14.4 SECONDS (11.7-14.9)
[2018-05-01 10:11] LABS: Partial Thromboplast Time 29.7 Seconds (24.1-36.2)
--- NOTE | 2018-05-01 10:30 | NURSING ---
Call from Dr. Gonzalez to this RN stating that he was able to get an appointment for Mr. Thomas 05/[address] Tan at the [facility]. He would like all information/tests from this admission to be sent with the patient for him to have at the appointment with Dr. Tan. Medical records was called and they faxed all documents to [facility] with the written consent of Mr. Thomas to be placed in a packet for him. A CD was also made of all imaging for Mr. Thomas as well.
[2018-05-01 14:00] VITALS: BP 122/75; PULSE 63; RESP 18; TEMP 37.3; O2SAT 95
[2018-05-01 15:00] VITALS: O2SAT 96
[2018-05-02 06:07] LABS: HEPATITIS B SURFACE AG Negative (Negative); Hepatitis A IgM Antibody Negative (Negative); Hepatitis B Core AB IgM Negative (Negative)
[2018-05-02 16:26] LABS: Hep C Antibodies 0.1 s/co ratio (0.0-0.9)
== END 2018-05-01 15:57 | disposition home or self-care (01) ==
LOC: ED 17:07 → MS3 19:54
PROVIDERS: Surgery; Admitting Provider Family Medicine; Emergency Provider Emergency Medicine; Family Provider Family Medicine; PCP Family Medicine; Visit Provider Student in an Organized Health Care Education/Training Program
DX: R74.8 Abnormal levels of other serum enzymes (principal); E03.9 Hypothyroidism, unspecified; E78.5 Hyperlipidemia, unspecified; K21.9 Gastro-esophageal reflux disease without esophagitis; E66.9 Obesity, unspecified; Z68.33 Body mass index [BMI] 33.0-33.9, adult; Z71.3 Dietary counseling and surveillance; N28.1 Cyst of kidney, acquired; K44.9 Diaphragmatic hernia without obstruction or gangrene; K42.9 Umbilical hernia without obstruction or gangrene; Z79.899 Other long term (current) drug therapy; R73.9 Hyperglycemia, unspecified; K57.30 Diverticulosis of large intestine without perforation or abscess without bleeding; K82.8 Other specified diseases of gallbladder
CPT/HCPCS: 36415; 74177; 74183; 76705; 80048; 80053; 80074; 80076; 81001; 82248; 83036; 83690; 83735; 85025; 85610; 85730; 96361; 96365; 96366; 96367; 99218; 99284; A9585; J7030; J7050; Q9967; G0378

== ENCOUNTER → 2020-04-28 | Outpatient (CLI) | payer BC, SELFPAY ==
--- NOTE | 2020-04-28 13:15 | STEWCON_ITS ---
Reason For Study: SOB Stress Results Protocol: Stress Echocardiogram Maximum Predicted HR: 154 bpm Target HR: 131 bpm % Maximum Predicted HR: 92 % DurationHeart Rate Stage (mm:ss) (bpm) BP Comment BASELINE 89 140/88DILUTED DEFINITY 4 CC USED SLY PROTOCOL- STAGE 1 3:00 112 150/90NO SX SLY PROTOCOL- STAGE 2 3:00 126 158/94SL DYSPNEA SLY PROTOCOL- STAGE 3 2:06 141 / DYSPNEA RECOVERY 98 120/90 Stress Duration: 8:06 mm:ss Maximum Stress HR: 141 bpm Baseline Echocardiogram Findings The estimated ejection fraction is 65 %. Stress Echo Wall motion Data Resting WM Intermediate WM Stress WM Resting Wall Motion Wall Motion Stress No regional wall motion No regional wall motion abnormalities noted. abnormalities noted. EKG Data The baseline ECG displays normal sinus rhythm. The patient exercised according to the regular Sly protocol for a total duration of 8:06. The maximum heart rate attained was 141 beats per minute. This was 91% of maximum predicted heart rate. The patient exercised into stage 3 of the Sly protocol. During stress, there were no ST or T wave changes noted to suggest ischemia. No clinical angina was noted. Interpretation Summary The estimated ejection fraction is 65 %. Normal, adequate, treadmill echocardiogram. Negative for ischemia by EKG and echocardiographic criteria. No anginal symptoms noted. Rare PVCs noted. Appropriate blood pressure response to exercise. Average exercise capacity for age. Test terminated due to the attainment of target heart rate and dyspnea. Final LVEF of 75%. Decrease sensitivity due to poor echo windows requiring Definity agent. Patient tolerated the procedure well. No complications. The study was technically difficult. Contrast injection was performed. Ordering Physician: Kalyan Aj Referring Physician: Kalyan Aj Performed By: Jessenia Castañeda, RDCS, RVT
== END | disposition home or self-care (01) ==
PROVIDERS: PCP Family Medicine; Referring Provider Family Medicine; Visit Provider Family Medicine
DX: R06.02 Shortness of breath (principal)
CPT/HCPCS: 93017; 93350; Q9957; A4216; C8928

== ENCOUNTER 2022-08-22 13:20 | Observation (INO) | payer BC, SELFPAY ==
[2022-08-22] VITALS (13 sets, daily range): BP systolic 123–178; BP diastolic 83–109; PULSE 66–96; RESP 14–18; TEMP 36.7–37.2; O2SAT 95–99; BMI 34.0; BMI 33.1
--- NOTE | 2022-08-22 13:34 | ED.RN ---
PATIENT INITIALLY WAS PREHOSPITAL STROKE ALERT. UPON ARRIVAL AND EVALUATION BY DR. ALLAN, STOKE ALERT CANCELED.
--- NOTE | 2022-08-22 13:37 | ED.RN ---
PATIENT WALKED TO RESTROOM, PATIENTS GAIT STEADY AND PATIENT DENIES SYMPTOMS. PATIENT STATES I'M FEELING MUCH BETTER.
--- NOTE | 2022-08-22 13:41 | CT_ITS ---
We are attempting to reach an attending provider to discuss findings. An addendum with communication details will be sent when the communication is complete. EXAM: CT HEAD WITHOUT INTRAVENOUS CONTRAST CLINICAL INDICATION: Neuro deficit, acute, stroke suspected TECHNIQUE: Multiple axial images were obtained of the head without intravenous contrast. This CT exam was performed using one or more of the following dose reduction techniques: automated exposure control, adjustment of the mA and/or kV according to patient size, and/or use of iterative reconstruction technique. This report was created using i-drive report Flex[employer] technology. COMPARISON: None. FINDINGS: BRAIN AND EXTRA-AXIAL SPACES: Normal. No intra- or extra-axial hemorrhage. No evidence of acute infarct. No intracranial mass or mass effect. There is preservation of the robles/white matter interface. Posterior fossa structures are unremarkable. Ventricles are appropriate for age. No hydrocephalus. Basal cisterns are patent. BONES/JOINTS: Normal. No discrete lytic or blastic abnormalities. SINUSES: Unremarkable as visualized. No acute sinusitis. MASTOID AIR CELLS: Normal. Clear. ORBITS: Visualized globes, extraocular muscles, optic nerves and retrobulbar fat appear unremarkable. CT/STROKE Brain/Head without Cont IMPRESSION: No acute intracranial abnormality. Aspect score 10 Electronically Signed: Enrique Kamara MD at 14:00 EST ,
--- NOTE | 2022-08-22 13:41 | CT_ITS ---
We are attempting to reach an attending provider to discuss findings. An addendum with communication details will be sent when the communication is complete. INDICATION: Neuro deficit, acute, stroke suspected EXAMINATION: CTA HEAD - CTA Head and Neck W/ Contrast Injection (and W/O Contrast Images if performed) TECHNIQUE: [place]/head CT angiogram protocol was performed following IV contrast. Routine carotid CT angiogram protocol was performed without and with IV contrast. NASCET criteria using the distal ICAs for comparison were used for evaluation of stenoses. 3D reconstructions were reviewed of the CT angiogram head and neck. A radiation dose optimization technique was used for this scan. IV Contrast dosage and agent: 100 cc [id number] COMPARISON: None. FINDINGS: --Anterior cerebral circulation: ACAs: No significant stenosis at the visualized segments. ACOM: Present. MCAs: No significant stenosis at the visualized segments. --Posterior cerebral circulation: PCOMs: Not present mortician supplies sales representative: No significant stenosis at the visualized segments. BASILAR ARTERY: No significant stenosis. --Carotid and vertebral circulation: AORTIC ARCH AND BRANCHES: Normal anatomy, patent. RIGHT CCA: No occlusion, significant stenosis or dissection. RIGHT ICA: Calcific plaquing noted at the origin. No occlusion, significant stenosis or dissection. LEFT CCA: No occlusion, significant stenosis or dissection. LEFT ICA: Calcific plaquing noted at the origin. No occlusion, significant stenosis or dissection. RIGHT VERTEBRAL ARTERY: No occlusion, significant stenosis or dissection. LEFT VERTEBRAL ARTERY: No occlusion, significant stenosis or dissection. NECK SOFT TISSUES: Unremarkable. LUNG APICES: Clear. BONES: Unremarkable. CT/STROKE CTA Head AND Neck W/Con IMPRESSION: No evidence of arterial obstruction, significant stenosis, dissection or intracranial aneurysm Electronically Signed: Enrique Kamara MD at 14:25 EST ,
--- NOTE | 2022-08-22 13:41 | EKG12_ITS ---
Test Reason : NEURO Blood Pressure : / mmHG Vent. Rate : 090 BPM Atrial Rate : 090 BPM P-R Int : 192 ms QRS Dur : 112 ms QT Int : 388 ms P-R-T Axes : 032 -28 014 degrees QTc Int : 474 ms Normal sinus rhythm Incomplete right bundle branch block Minimal voltage criteria for LVH, may be normal variant ( R in aVL ) Borderline ECG Confirmed by JAKE AGUILAR, WAQAR ([id number]), deputy editor in chief CARLA VELAZQUEZ ([id number]) on 08/23/2022 9:18:40 AM Referred By: Confirmed By:WAQAR JOSEPH MD
--- NOTE | 2022-08-22 13:50 | RAD_ITS ---
EXAM: XR CHEST, 1 VIEW CLINICAL INDICATION: Neuro deficit, acute, stroke suspected TECHNIQUE: Frontal view of the chest. This report was created using alive.cn report generation technology. COMPARISON: None. FINDINGS: LUNGS AND PLEURAL SPACES: Normal. No consolidation or edema. No pneumothorax. No effusion. HEART: Normal heart size. MEDIASTINUM: No mediastinal or hilar mass. BONES/JOINTS: No acute abnormality. SOFT TISSUES: Normal. RAD/Chest 1 View IMPRESSION: No acute cardiopulmonary disease. Electronically Signed: Enrique Kamara MD at 14:26 EST ,
--- NOTE | 2022-08-22 13:53 | CM.ED ---
SW Note SW responded to stroke alert however, stroke alert cancelled. Chemical Processing Laborer advised that patient is responding to questions. No other family present at this time. Ernestina WATT
[2022-08-22 13:54] LABS: Absolute Lymphocyte Count 1.23 X10^3/uL (0.83-4.51); Absolute Neutrophil Count 7.6 X10^3/uL (2.0-7.7); Basophil# 0.09 X10^3/uL; Basophil% 0.9 % (0-1); Eosinophil# 0.12 X10^3/uL; Eosinophils% 1.2 % (0-5); Hematocrit 49.6 % (40-54); Hemoglobin 16.4 g/dL (13.0-16.5); Lymphocyte # 1.23 X10^3/ul (0.83-4.51); Lymphocyte % 12.5 % (19-41); Mean Corp Hgb Conc 33.1 g/dL (32-36); Mean Corpuscular Volume 84.6 fL (80-94); Monocyte# 0.75 X10^3/uL; Monocyte% 7.6 % (0-10); NRBC Flagged by Analyzer 0 % (0-5); Neutrophil # 7.62 X10^3/uL (2.7-7.7); Neutrophil % 77.2 % (47-70); Platelet Count 255 K/mm3 (150-450); RBC Distribution Width CV 13.3 % (11.6-14.6); Red Blood Count 5.86 M/mm3 (4.6-6.2); White Blood Count 9.9 K/mm3 (4.4-11.0)
[2022-08-22 13:57] LABS: Partial Thromboplast Time 23.5 Seconds (24.1-36.2)
[2022-08-22 13:58] LABS: Prothrombin Time (Protime)PT. 12.9 SECONDS (11.7-14.9)
--- NOTE | 2022-08-22 14:00 | CHAPLAIN ---
Type of Pastoral Visit ___ Initial Visit ___ Follow-up Visit ___ On-call Visit ___ General Patient Visit ___ Spiritual Assessment ___ Family Conference ___ Bereavement _x__ Rapid Response ___ Code Blue ___ Other (describe below) Pastoral Care Referral From ___ Patient ___ Family ___ Nurse ___ Physician ___ Plastic Manager ___ Tailing Hand _x__ Other (describe below) Sacrament/Intervention ___ Active listening ___ Anointing ___ Anabaptist ___ Bereavement ___ Communion ___ [place] exploration ___ ___ Life review ___ Prayer ___ Reconciliation ___ Sacrament of Sick _x__ Supportive presence ___ Wedding ___ Other (describe below) Pastoral Comments came to ED for the stroke alert; pt was able to communicate and pass stroke tests with the doctor and taken to a room; this school manager went to meet the spouse and when she arrived took her to the pt's room; offered support and presence to the patient; pt stated that he was not in need
[2022-08-22 14:05] LABS: Anion Gap 7 (5-15); BUN 21 mg/dL (7-18); BUN/Creat Ratio 15.3 RATIO (10-20); Calcium,Total 9.4 mg/dL (8.5-10.1); Chloride 108 mmol/L (98-107); Creatinine, Serum 1.37 mg/dL (0.70-1.30); EST Glomerular Filtration Rate 55 mL/min (>60); Est Glom Filt Rate - Afr Amer 66 mL/min (>60); Estimated Creatinine Clearance 56.64 ml/min; Glucose 118 mg/dL (74-106); Potassium 3.8 mmol/L (3.5-5.1); Sodium Level 142 mmol/L (136-145); Troponin-I HS 14 pg/mL (3.0-78.0)
--- NOTE | 2022-08-22 14:34 | ED.RN ---
PT TO MRI WITH RADIOLOGY STAFF
--- NOTE | 2022-08-22 14:37 | MRI_ITS ---
EXAM: MR HEAD WITHOUT INTRAVENOUS CONTRAST CLINICAL INDICATION: TIA TECHNIQUE: Multiplanar and multisequence MR images of the brain were obtained without intravenous contrast. This report was created using Mini[employer]uxe report generation technology. COMPARISON: None. FINDINGS: BRAIN AND EXTRA-AXIAL SPACES: Normal. No intra- or extra-axial hemorrhage. No evidence of acute infarct. No intracranial mass or mass effect. There is preservation of the robles/white matter interface. Posterior fossa structures are unremarkable. Ventricles are appropriate for age. No hydrocephalus. Basal cisterns are patent. SELLA: Normal. Normal sella turcica, pituitary gland, infundibular stalk, optic chiasm and hypothalamus. AUDITORY SYSTEM: Normal. The internal auditory canals are patent. BONES/JOINTS: Intact calvarium. SINUSES: Unremarkable as visualized. Clear. MASTOID AIR CELLS: Unremarkable as visualized. Clear. ORBITS: Unremarkable as visualized. Both globes, extraocular muscles, optic nerves and retrobulbar fat appear unremarkable. VASCULATURE: Unremarkable as visualized. Normal flow voids in the major intracranial circulation. MRI/Brain without Contrast IMPRESSION: Normal MRI brain without intravenous contrast. Electronically Signed: Enrique Kamara MD at 15:18 EST ,
--- NOTE | 2022-08-22 15:55 | ED.RN ---
Per dr.hoehne hand for patient to eat at this time.
--- NOTE | 2022-08-22 16:11 | ED.RN ---
per RN to continue to monitor blood pressures at this time.
[2022-08-22] MEDS: Labetalol (Prefilled) 20 MG/4 ML 10 MG IV (16:20)
--- NOTE | 2022-08-22 16:35 | ED.VIS.STROK ---
HPI History of Present Illness Chief Complaint: Neuro S/Sx Informant: patient and EMS Narrative Narrative: 67-year-old male with a history of hypercholesterolemia and hypothyroidism presenting to the emergency department following a prehospital stroke alert. He tells me that he was sitting at his table reading mail when he got a pain of his right eye. He stood up and noticed that he was off balance and had difficulty walking not so much because of muscle strength but because of off balance. He states that he ping-pong along the wall. He went and laid down. He attempted to call his but could not get his left hand to get to his phone which was on his hip. He notes that he felt globally weak but the left was definitely worse than the right. Eventually EMS was called and after 30 minutes of total symptoms he states he started to slowly improve. He currently states that he is feeling pretty good. He notes that this has never happened to him before. No history of hypertension. [facility] Medical History Acid reflux Hyperlipemia Hypothyroidism Home Medications levothyroxine 75 mcg tablet 112 mcg PO DAILY thyroid 02/13/14 [History Last Taken 04/30/18] omeprazole 20 mg capsule,delayed release 20 mg PO QHS gerd 02/13/14 [History Last Taken 04/29/18] atorvastatin 10 mg tablet 10 mg PO DAILY 08/22/22 [History Last Taken Unknown] Allergy/AdvReac Type Severity Reaction Status Date / Time No Known Allergies Allergy Verified 08/22/22 13:35 Social History (Updated 08/22/22 @ 16:[address] Justin Rodas DO) Smoking Status: Never smoker substance use type: does not use ROS ROS ED Constitutional Constitutional ED: Denies chills, fever(s) or weight loss Eyes Eyes: Reports other Details: Right eye pain ; Denies change in vision or diplopia ENT ENT ED: Denies ear pain, rhinorrhea or sore throat Cardiovascular Cardiovascular: Denies chest pain, orthopnea, palpitations or racing heartbeat Respiratory/Chest Respiratory/Chest: Denies cough, dyspnea or orthopnea Gastrointestinal Gastrointestinal: Denies abdominal pain, diarrhea, nausea or vomiting Genitourinary Genitourinary ED: Denies dysuria, hematuria or urinary frequency Musculoskeletal Musculoskeletal: Denies arthralgias or myalgias Integumentary Denies abscess or rash Neurologic Neurologic: Reports headache(s), weakness and other Details: Ataxia Psychiatric Psychiatric: Denies anxiety, depression, suicidal ideation or suicidal thoughts Endocrine Endocrinology: Denies polydipsia, polyphagia or polyuria Allergic/Immunologic Allergic/Immunologic ED: Denies mouth swelling, tongue swelling or urticaria EXAM Physical Exam Const Vital Signs: 08/22/22 13:28 08/22/22 13:47 08/22/22 14:11 Temperature 98.3 F Temperature Source Oral Pulse Rate 90 96 96 Respiratory Rate 16 18 18 Blood Pressure 140/95 H 157/91 H 178/106 H Blood Pressure Mean 110 113 130 Pulse Ox 97 98 99 Oxygen Delivery Method Room Air Room Air Room Air 08/22/22 13:41 08/22/22 15:21 08/22/22 15:47 Temperature Temperature Source Pulse Rate 93 88 85 Respiratory Rate 18 16 14 Blood Pressure 178/106 H 140/104 H 140/99 H Blood Pressure Mean 130 116 112 Pulse Ox 98 97 97 Oxygen Delivery Method Room Air Room Air Room Air 08/22/22 16:09 Temperature Temperature Source Pulse Rate 83 Respiratory Rate 16 Blood Pressure 154/108 H Blood Pressure Mean 123 Pulse Ox 99 Oxygen Delivery Method Room Air Positive well nourished and well developed General Appearance ED: well developed HEENT Reports normocephalic, head/scalp atraumatic and moist mucous membranes Eyes PERRL and EOMs intact bilaterally Neck no lymphadenopathy, supple and no JVD Resp normal respiratory effort and clear to auscultation bilaterally Cardio regular rate, regular rhythm and no murmurs GI normal to inspection, nondistended, normoactive bowel sounds and non-tender Palpation: soft Back/Spine no CVA tenderness and normal ROM Extremity normal to inspection General Extremety ED: Negative for edema General Extremity: Negative for edema Neuro oriented x3 and CN's II-XII intact bilaterally Sensorium / Orientation: alert Motor Exam: strength 5/5 throughout Psych mental status grossly normal Mood & Affect: Negative for depressed or tearful Skin no rashes or lesions noted and no wounds NIHSS NIHSS Initial: 1a Level of Consciousness: 0 1b LOC Questions (Score 2 if aphasic/stupor): 0 1c LOC Commands (Only score 1st attempt): 0 2 Best Gaze (If aphasic, use reflexive mvmts.): 0 3 Visual: 0 4 Facial Palsy: 0 5 Motor Arm Right (UN = amputation/fusion): 0 5 Motor Arm Left: 0 6 Motor Leg Right: 0 6 Motor Leg Left: 0 7 Limb ataxia (Only + if out of proportion): 0 8 Sensory (Aphasia/stupor=0 or 1, coma=2): 0 9 Best Language: 0 10 Dysarthria (mute, coma=2, intubated=UN): 0 11 Extinction and Inattention (only scored if +): 0 Total Score: 0 MDM MDM MDM Narrative Medical decision making narrative: Upon arrival the patient is currently asymptomatic. His NIH is 0. He was able to get off the ambulance cot and ambulate to the bathroom and urinate. He did not have any difficulty doing this. Basic blood work was obtained showed a creatinine of 1.37. Not anemic coags are normal troponin 14. CT of the brain initial was negative CTA does not demonstrate an LV or significant stenosis. My interpretation of the chest x-ray is no acute process. I discussed the case with our hospitalist and we are able to arrange a MRI quickly. This was obtained and was negative. Would appear that the gentleman has had a TIA. His blood pressure remains significantly high in the diastolic range but also moderately high in the systolic range. Currently 154/108. Labetalol was given. Our plan is admission into the hospital for further care. Lab Data Attestation: I reviewed the patient's lab results. Labs: Laboratory Results - last 24 hr 08/22/22 08/22/22 08/22/22 13:35 13:35 13:35 WBC 9.9 RBC 5.86 Hgb 16.4 Hct 49.6 MCV 84.6 MCH 28.0 MCHC 33.1 RDW Std Deviation 41.0 RDW Coeff of Shalom 13.3 Plt Count 255 MPV 9.0 Immature Gran % (Auto) 0.600 Neut % (Auto) 77.2 H Lymph % (Auto) 12.5 L [place] % (Auto) 7.6 Eos % (Auto) 1.2 Baso % (Auto) 0.9 Absolute Neuts (auto) 7.6 Absolute Lymphs (auto) 1.23 Nucleated RBC % 0 PT 12.9 INR 1.0 APTT 23.5 L Sodium 142 Potassium 3.8 Chloride 108 H Carbon Dioxide 27.0 Anion Gap 7 BUN 21 H Creatinine 1.37 H Estim Creat Clear Calc 56.64 Est GFR (MDRD) Af Amer 66 Est GFR (MDRD) Non-Af 55 L BUN/Creatinine Ratio 15.3 Glucose 118 H Calcium 9.4 Troponin I High Sens 14 Radiography Diagnostic Testing: Clinical Impression(s) from Imaging Studies Brain CT 08/22/22 13:41 IMPRESSION: No acute intracranial abnormality. Aspect score 10 Electronically Signed: Enrique Kamara MD at 14:00 EST , ADDENDUM: 08/22/22 1419 IMPRESSION: No acute intracranial abnormality. Aspect score 10 N.B. : The above Results were Read Back by Enrique Kamara MD to Justin Rodas MD, and understanding confirmed on 08/22/2022 14:12:12 (ET). Electronically Signed: Enrique Kamara MD at 14:00 EST , Head/Neck CTA 08/22/22 13:41 IMPRESSION: No evidence of arterial obstruction, significant stenosis, dissection or intracranial aneurysm Electronically Signed: Enrique Kamara MD at 14:25 EST , ADDENDUM: 08/22/22 1437 IMPRESSION: No evidence of arterial obstruction, significant stenosis, dissection or intracranial aneurysm N.B. : The above Results were Read Back by Enrique Kamara MD to Justin Rodas MD, and understanding confirmed on 08/22/2022 14:30:17 (ET). Electronically Signed: Enrique Kamara MD at 14:25 EST , Chest X-Ray 08/22/22 13:50 IMPRESSION: No acute cardiopulmonary disease. Electronically Signed: Enrique Kamara MD at 14:26 EST , Brain MRI 08/22/22 14:37 IMPRESSION: Normal MRI brain without intravenous contrast. Electronically Signed: Enrique Kamara MD at 15:18 EST , EKG Initial EKG: Attestation: I personally reviewed and interpreted this EKG as follows: Comments: Normal sinus rhythm at a ventricular rate of 90 bpm. Incomplete right bundle branch block Discharge Plan Dx/Rx/DC Orders Clinical Impression: Hyperlipidemia, Hypothyroidism, Brain TIA Disposition Disposition: Acute Care Hospital [facility]
--- NOTE | 2022-08-22 17:06 | PCM.HP.STD ---
HPI - General General Date of Admission: 08/22/22 Date of Service: 08/22/22 Chief Complaint: Left-sided weakness, ataxia, dysarthria HPI Narrative CHAZ HORVATH, is a 67 M who presents to the emergency room at [facility] after having a episode of ataxia, left-sided weakness, and some dysarthria which lasted approximately 30 minutes today. Patient states he had trouble walking because he could not keep his balance, patient did not have any visual disturbances, patient did not complain of any lower extremity weakness but stated that when he went to use his telephone with his left hand he could not punch the numbers correctly. Patient has a history of hyperlipidemia, autoimmune hepatitis, and hypothyroidism. Patient does not take a daily aspirin A stroke team was not called on the patient, his NIH score was 0 here, he underwent a CTA of his head and neck as well as a brain CT all which were unremarkable. Patient also had an MRI of the brain that was also unremarkable. Patient will be placed into observation status on PCU for TIA, he will be placed on 81 mg aspirin daily, patient had a lipid profile done recently-I do not have access to this but he told me his physician was reluctant to increase his Lipitor due to his past history of autoimmune hepatitis-patient had an episode of this several years ago and they never came to a conclusion as to what caused it and it resolved spontaneously. Patient will have an echocardiogram performed tomorrow, he will be seen by PT, OT, and speech therapy. [facility] Medical History Acid reflux Hyperlipemia Hypothyroidism Home Medications levothyroxine 75 mcg tablet 112 mcg PO DAILY thyroid 02/13/14 [History Last Taken 04/30/18] omeprazole 20 mg capsule,delayed release 20 mg PO QHS gerd 02/13/14 [History Last Taken 04/29/18] atorvastatin 10 mg tablet 10 mg PO DAILY 08/22/22 [History Last Taken Unknown] Allergy/AdvReac Type Severity Reaction Status Date / Time No Known Allergies Allergy Verified 08/22/22 13:35 Social History (Updated 08/22/22 @ 16:[address] Justin Rodas DO) Smoking Status: Never smoker substance use type: does not use ROS Constitutional Constitutional: Denies anorexia, change in weight, chills, fatigue, fever(s), night sweats or weakness Eyes Eyes: Denies blurry vision, change in vision, discharge from eye(s) or eye pain Cardiovascular Cardiovascular: Denies chest pain, claudication, edema or palpitations Respiratory/Chest Respiratory/Chest: Denies cough, hemoptysis, shortness of breath at rest or shortness of breath with exertion Gastrointestinal Gastrointestinal: Denies abdominal pain, constipation, diarrhea, hematemesis, hematochezia, melena, nausea or vomiting Genitourinary Genitourinary: Denies dysuria, hematuria, urinary frequency, urinary hesitancy, urinary incontinence or urinary urgency Musculoskeletal Musculoskeletal: Reports other Details: Patient has right knee discomfort, he is due to get an MRI performed in the near future ; Denies back pain, joint pain, joint stiffness, joint swelling, myalgias or neck pain Neurologic Neurologic: Reports abnormal gait, abnormal speech, focal weakness and other Details: Patient complaining about brief episode of loss of balance, left-sided weakness (chiefly upper extremity) and slurred speech according to the . ; Denies dizziness, headache(s), loss of vision, numbness, other visual disturbances, paresthesias, syncope or tingling Psychiatric Psychiatric: Denies anxiety, cognitive impairment, depression, irritability, mood swings or suicidal ideation Endocrine Endocrinology: Denies change in body appearance, cold intolerance, excessive sweating, heat intolerance, polydipsia or polyuria Hematologic/Lymphatic Hematologic/Lymphatic: Denies none, anemia, easy bleeding, easy bruising or lymphadenopathy Allergic/Immunologic Allergic/Immunologic: Denies rhinitis, urticaria, eczemia or asthma Vital Signs Vital Signs Vital Signs: 08/22/22 13:28 08/22/22 13:47 08/22/22 14:11 Temperature 98.3 F Temperature Source Oral Pulse Rate 90 96 96 Respiratory Rate 16 18 18 Blood Pressure 140/95 H 157/91 H 178/106 H Blood Pressure Mean 110 113 130 Pulse Ox 97 98 99 Oxygen Delivery Method Room Air Room Air Room Air 08/22/22 13:41 08/22/22 15:21 08/22/22 15:47 Temperature Temperature Source Pulse Rate 93 88 85 Respiratory Rate 18 16 14 Blood Pressure 178/106 H 140/104 H 140/99 H Blood Pressure Mean 130 116 112 Pulse Ox 98 97 97 Oxygen Delivery Method Room Air Room Air Room Air 08/22/22 16:09 08/22/22 16:43 08/22/22 16:43 Temperature 98.3 F Temperature Source Temporal Pulse Rate 83 86 85 Respiratory Rate 16 15 15 Blood Pressure 154/108 H 123/109 H 123/109 H Blood Pressure Mean 123 113 113 Pulse Ox 99 99 99 Oxygen Delivery Method Room Air Room Air Weight Weight: 113.9 kg Body Mass Index (BMI) 34.0 Physical Exam Const alert, oriented x3, no apparent distress, average body habitus and healthy appearing General Appearance: cooperative, well kempt and well developed Orientation / Consciousness: awake, oriented to person, oriented to place and oriented to time HEENT normocephalic, head/scalp atraumatic, hearing grossly normal bilaterally and moist oral mucous membranes Eyes PERRL, EOMs intact bilaterally and conjunctivae normal Neck supple, no JVD, thyroid normal and no carotid bruits General: trachea midline Resp normal respiratory effort, no retractions, no use of accessory muscles and clear to auscultation bilaterally Auscultation: Negative for rales, rhonchi or wheezes Cardio regular rate, regular rhythm, S1 normal heart sound, S2 normal heart sound, no murmurs, no rub and no gallops GI normal to inspection, nondistended, normoactive bowel sounds, soft to palpation, non-tender and non-distended Extremity no clubbing, cyanosis or edema Skin no rashes or lesions noted General Skin Exam: no breakdown Neuro oriented x3, CN's II-XII intact bilaterally, moves all extremities, no focal motor deficits and no sensory deficits noted Sensorium / Orientation: awake and alert Speech: speech normal Psych affect normal Results Lab / Micro Data Result Diagrams: 08/22/22 13:35 08/22/22 13:35 Labs: Laboratory Results - last 24 hr 08/22/22 13:35: WBC 9.9, RBC 5.86, Hgb 16.4, Hct 49.6, MCV 84.6, MCH 28.0, MCHC 33.1, RDW Std Deviation 41.0, RDW Coeff of Shalom 13.3, Plt Count 255, MPV 9.0, Immature Gran % (Auto) 0.600, Neut % (Auto) 77.2 H, Lymph % (Auto) 12.5 L, [place] % (Auto) 7.6, Eos % (Auto) 1.2, Baso % (Auto) 0.9, Absolute Neuts (auto) 7.6, Absolute Lymphs (auto) 1.23, Nucleated RBC % 0 08/22/22 13:35: PT 12.9, INR 1.0, APTT 23.5 L 08/22/22 13:35: Sodium 142, Potassium 3.8, Chloride 108 H, Carbon Dioxide 27.0, Anion Gap 7, BUN 21 H, Creatinine 1.37 H, Estim Creat Clear Calc 56.64, Est GFR (MDRD) Af Amer 66, Est GFR (MDRD) Non-Af 55 L, BUN/Creatinine Ratio 15.3, Glucose 118 H, Calcium 9.4, Troponin I High Sens [address] 08/22/22 13:41 IMPRESSION: No acute intracranial abnormality. Aspect score 10 Electronically Signed: Enrique Kamara MD at 14:00 EST Reading Location ID and State: [facility] / [place] Tel , Service support , ADDENDUM: 08/22/22 1419 IMPRESSION: No acute intracranial abnormality. Aspect score 10 N.B. : The above Results were Read Back by Enrique Kamara MD to Justin Rodas MD, and understanding confirmed on 08/22/2022 14:12:12 (ET). Electronically Signed: Enrique Kamara MD at 14:00 EST Reading Location ID and State: [facility] / [place] Tel , Service support , Head/Neck CTA 08/22/22 13:41 IMPRESSION: No evidence of arterial obstruction, significant stenosis, dissection or intracranial aneurysm Electronically Signed: Enrique Kamara MD at 14:25 EST , ADDENDUM: 08/22/22 1437 IMPRESSION: No evidence of arterial obstruction, significant stenosis, dissection or intracranial aneurysm N.B. : The above Results were Read Back by Enrique Kamara MD to Justin Rodas MD, and understanding confirmed on 08/22/2022 14:30:17 (ET). Electronically Signed: Enrique Kamara MD at 14:25 EST , Chest X-Ray 08/22/22 13:50 IMPRESSION: No acute cardiopulmonary disease. Electronically Signed: Enrique Kamara MD at 14:26 EST , Brain MRI 08/22/22 14:37 IMPRESSION: Normal MRI brain without intravenous contrast. Electronically Signed: Enrique Kamara MD at 15:18 EST , Assessment & Plan Assessment/Plan (1) Brain TIA: PLAN: Plan 1. TIA-patient will be placed in observation status on PCU, NIH scores will be monitored, will be placed on aspirin 81 mg daily, he will remain on his current dose of Lipitor-again I am not sure what his last LDL cholesterol result was, because of his past history of autoimmune hepatitis, I am reluctant to increase his dose of Lipitor at this time. Patient will get an echocardiogram performed and will be seen by PT, OT and speech therapy. #2 hyperlipidemia-patient is on Lipitor #3 hypothyroidism-patient takes Synthroid #4 transient hypertension-patient's blood pressure was elevated in the emergency room, he was given 10 mg of labetalol IV, his blood pressure will be monitored on the floor Charges/Coding Visit Charges OBSV E&M: 56012 Initial observation care L3
--- NOTE | 2022-08-22 17:43 | ECHOCS_ITS ---
Reason For Study: TIA/CVA Procedure This was a 2D Doppler, Color Flow transthoracic echocardiogram. The study was technically difficult. Exam performed portable in patient room. Left Ventricle Normal LV size. Left ventricular systolic function is normal. The estimated ejection fraction is 65 %. Stage 1 diastolic dysfunction. No regional wall motion abnormalities noted. Right Ventricle Normal RV size. Normal systolic function. Atria Normal left atrium. Normal right atrium. Bubble contrast study negative for right to left interatrial shunt. Mitral Valve Normal mitral valve. Tricuspid Valve Normal tricuspid valve. Pulmonic Valve Normal pulmonic valve. Great Vessels Normal aortic root. Pericardium/Pleural No pericardial effusion. Medication Performed a rapid injection of agitated mix of 9 cc saline and 1cc air to assess for atrial septal defect. Diluted definity 2ml given slow IV push to enhance endocardial definition. MMode/2D Measurements & Calculations LVIDd: 5.2 cm IVSd: 1.0 cm Ao root diam: 3.4 cm LVIDs: 3.6 cm LVPWd: 0.99 cm RVDd: 3.0 cm FS: 30.8 % LAV(MOD-bp): 34.2 ml LVAd ap4: 43.2 cm2 SV(MOD-sp4): 100.2 ml LAV(MOD-bp) Indexed: 14.8 ml/m2 LVLd ap4: 9.5 cm LAV(MOD-sp2): 33.9 ml EDV(MOD-sp4): 161.2 ml LAV(MOD-sp4): 35.2 ml EDV(sp4-el): 166.5 ml LVAs ap4: 23.1 cm2 LVLs ap4: 7.7 cm ESV(MOD-sp4): 61.0 ml ESV(sp4-el): 59.1 ml EF(MOD-sp4): 62.2 % EF(sp4-el): 64.5 % SV(sp4-el): 107.3 ml LA A4 area: 15.3 cm2 LA dimension(2D): 3.5 cm RA A4 area: 11.5 cm2 Time Measurements MV dec time: 0.36 sec Doppler Measurements & Calculations MV E max toby: 53.9 cm/sec Lat Peak E' Otby: 12.2 cm/sec Med Peak E' Toby: 7.6 cm/sec MV A max toby: 72.0 cm/sec E/E' lat: 4.4 E/E' med: 7.1 MV E/A: 0.75 Ao V2 max: 137.6 cm/sec LV V1 max: 99.6 cm/sec PA V2 max: 100.0 cm/sec Ao max P.6 mmHg LV V1 max P.0 mmHg TR max toby: 234.6 cm/sec TR max P.0 mmHg ECHO/Echo Complete W/ Contrast Interpretation Summary Normal LV size. Left ventricular systolic function is normal. The estimated ejection fraction is 65 %. Stage 1 diastolic dysfunction. Bubble contrast study negative for right to left interatrial shunt. Contrast injection was performed. Ordering Physician: Dajuan Villa Referring Physician: DAYANNA NEAL Performed By: Malia Michel RDCS
[2022-08-22] MEDS: Aspirin E.C. 81 MG Tablet PO (18:37)
[2022-08-22] MEDS: Pantoprazole Sodium 20 MG Tablet PO (21:55)
[2022-08-22] MEDS: 0.9% Saline Lock 10 ML Syringe IV (21:56)
[2022-08-22] MEDS: Atorvastatin Calcium 10 MG Tablet PO (22:57)
[2022-08-23 01:39] VITALS: BP 134/89; PULSE 65; RESP 18; TEMP 37; O2SAT 96
[2022-08-23 03:00] VITALS: PULSE 56
[2022-08-23 05:38] VITALS: BP 129/96; PULSE 58; RESP 18; TEMP 36.7; O2SAT 95
[2022-08-23] MEDS: Levothyroxine 112 MCG Tablet PO (05:42)
--- NOTE | 2022-08-23 07:00 | NURSING ---
Charting reviewed with Digna SHARIF.
[2022-08-23 07:04] VITALS: PULSE 51
[2022-08-23 07:21] VITALS: O2SAT 92
--- NOTE | 2022-08-23 08:04 | DCINST_ITS ---
Discharge Instructions Diet Discharge Diet: Low fat / Low cholesterol and 2000 mg Sodium Diet Activity Discharge Activity: Return to Normal Activity Follow Up Care Test Results: Test results from this visit will be discussed in further detail at your follow- up appointment, if applicable. Discharge Plan Admission Admit Date/Time: 08/22/22 17:01 Primary Reason for Your Visit: Acute TIA Attending Provider: Shelly Cerda Primary Care Provider: Kalyan Aj Consulting Providers: Dajuan Villa Discharge Orders/Prescriptions Prescriptions: New aspirin 81 mg Tablet,Chewable 81 mg PO BREAKFAST 30 Days Qty: 30 0RF Continued levothyroxine 75 MCG tablet 112 mcg PO DAILY omeprazole 20 MG capsule 20 mg PO QHS atorvastatin 10 mg tablet 10 mg PO QHS Referrals / Follow Up: Kalyan Aj MD [Primary Care Provider] - In 1 Week Disposition Disposition (needs filled in before D/C Order can be placed): Home, Self Care
--- NOTE | 2022-08-23 08:06 | CASEMGMT ---
Addendum entered by Magaly Lau 08/23/22 10:55: Per therapy, no need for any further therapy. Dr. Cerda updated and states pt still waiting on ECHO results. Abiodun SHARIF CM Original Note: Pt has been independent in room and [facility] is 0. Abiodun SHARIF CM
[2022-08-23 09:21] VITALS: BP 130/93; PULSE 70; RESP 20; TEMP 36.3; O2SAT 96
[2022-08-23] MEDS: Aspirin 81 MG TAB.CHEW PO (09:29)
[2022-08-23] MEDS: FLU VACC QS2022-23(6MOS UP)/PF 60 MCG/0.5 ML SYRINGE IM (09:29)
--- NOTE | 2022-08-23 09:37 | DS.PCM_ITS ---
Providers Date of Admission: 08/22/22 Date of Discharge: 08/23/22 Primary Care Physician: Dr. Kalyan Aj MD Reason For Visit: TIA Diagnosis Discharge Diagnosis (1) Brain TIA: Status: Acute Code(s): G45.9 - Transient cerebral ischemic attack, unspecified Medications at Discharge Home Medications levothyroxine 75 mcg tablet 112 mcg PO DAILY thyroid 02/13/14 omeprazole 20 mg capsule,delayed release 20 mg PO QHS gerd 02/13/14 atorvastatin 10 mg tablet 10 mg PO QHS cholesterol 08/22/22 aspirin 81 mg chewable tablet 81 mg PO BREAKFAST 30 days #30 tabs 08/23/22 Hospital Course Operations None Procedures 2-D Echocardiogram Summary of Care Provided Minutes Spent on Discharge: 35 Hospital Course: 67-year-old male with past medical history of dyslipidemia, hypothyroidism, history of statin induced liver injury, who comes in with complaints of left- sided weakness dysarthria and ataxia that started on the day of admission. This lasted for about 30 minutes. Patient had problems walking, using his phone, and when he called his office, his voice was said to be slurred. In the emergency room, patient was back to normal. His admitting NIHSS score was 0. He underwent CT of the head and neck as well as brain CT that was unremarkable. Patient also underwent MRI of the brain that was unremarkable. He was admitted to the progressive care unit and monitored on telemetry with no acute events. There were no atrial fibrillation on telemetry. Patient was kept on 81 mg of aspirin. He had 2D echo done that was unremarkable. Patient left [place] and when his results of the 2D echo were released. Dr. Villa discussed with Dr. Archuleta and subsequently discussed the findings with him and recommended follow-up with Dr. Aj. Patient was asked to increase his atorvastatin from 10 mg daily to 20 mg daily. He will need repeat LFTs done with his primary care doctor within 1 to 2 weeks. Physical Exam Narrative Physical exam: General: Alert, Oriented x3, Cooperative, No apparent distress HEENT: Atraumatic Oral: Moist Mucosa Neck: Supple Lungs: Clear to auscultation Cardiovascular: HS I+II, regular, no murmurs Abdomen: Bowel Sounds Present, Soft, Non Tender Extremities: No edema Skin: No rashes, No breakdown Neurological: Grossly intact Psych/Mental Status: Appropriate Weight / BMI Weight Weight: 110.903 kg Body Mass Index (BMI) 33.1 ABG / Lab / Microbiology Data Result Diagrams: 08/22/22 13:35 08/22/22 13:35 Laboratory: Laboratory Results - last 24 hr 08/22/22 13:35: WBC 9.9, RBC 5.86, Hgb 16.4, Hct 49.6, MCV 84.6, MCH 28.0, MCHC 33.1, RDW Std Deviation 41.0, RDW Coeff of Shalom 13.3, Plt Count 255, MPV 9.0, Immature Gran % (Auto) 0.600, Neut % (Auto) 77.2 H, Lymph % (Auto) 12.5 L, [place] % (Auto) 7.6, Eos % (Auto) 1.2, Baso % (Auto) 0.9, Absolute Neuts (auto) 7.6, Absolute Lymphs (auto) 1.23, Nucleated RBC % 0 08/22/22 13:35: PT 12.9, INR 1.0, APTT 23.5 L 08/22/22 13:35: Sodium 142, Potassium 3.8, Chloride 108 H, Carbon Dioxide 27.0, Anion Gap 7, BUN 21 H, Creatinine 1.37 H, Estim Creat Clear Calc 56.64, Est GFR (MDRD) Af Amer 66, Est GFR (MDRD) Non-Af 55 L, BUN/Creatinine Ratio 15.3, Glucose 118 H, Calcium 9.4, Troponin I High Sens 14 Radiography Diagnostic Testing: Radiology Impression Brain CT 08/22/22 13:41 IMPRESSION: No acute intracranial abnormality. Aspect score 10 Electronically Signed: Enrique Kamara MD at 14:00 EST , ADDENDUM: 08/22/22 1419 IMPRESSION: No acute intracranial abnormality. Aspect score 10 N.B. : The above Results were Read Back by Enrique Kamara MD to Justin Rodas MD, and understanding confirmed on 08/22/2022 14:12:12 (ET). Electronically Signed: Enrique Kamara MD at 14:00 EST , Head/Neck CTA 08/22/22 13:41 IMPRESSION: No evidence of arterial obstruction, significant stenosis, dissection or intracranial aneurysm Electronically Signed: Enrique Kamara MD at 14:25 EST , ADDENDUM: 08/22/22 1437 IMPRESSION: No evidence of arterial obstruction, significant stenosis, dissection or intracranial aneurysm N.B. : The above Results were Read Back by Enrique Kamara MD to Justin Rodas MD, and understanding confirmed on 08/22/2022 14:30:17 (ET). Electronically Signed: Enrique Kamara MD at 14:25 EST Reading Location ID and State: [address] [place] [address] Tel , Service support , Chest X-Ray 08/22/22 13:50 IMPRESSION: No acute cardiopulmonary disease. Electronically Signed: Enrique Kamara MD at 14:26 EST Reading Location ID and State: [address] [place] [address] Tel , Service support , Brain MRI 08/22/22 14:37 IMPRESSION: Normal MRI brain without intravenous contrast. Electronically Signed: Enrique Kamara MD at 15:18 EST , D/C Instructions Discharge Diet: Low fat / Low cholesterol and 2000 mg Sodium Diet Meaningful Use Info Meaningful Use Diagnoses (Choose all that apply): None applicable Discharge Plan Admission Admit Date/Time: 08/22/22 17:01 Primary Reason for Your Visit: Acute TIA Attending Provider: Shelly Cerda Primary Care Provider: Kalyan Aj Consulting Providers: Dajuan Villa Discharge Orders/Prescriptions Prescriptions: New aspirin 81 mg Tablet,Chewable 81 mg PO BREAKFAST 30 Days Qty: 30 0RF Continued levothyroxine 75 MCG tablet 112 mcg PO DAILY omeprazole 20 MG capsule 20 mg PO QHS atorvastatin 10 mg tablet 10 mg PO QHS Referrals / Follow Up: Kalyan Aj MD [Primary Care Provider] - In 1 Week Disposition Disposition (needs filled in before D/C Order can be placed): Home, Self Care Charges/Coding Visit Charges Inpatient E&M: 34418 Disch Hosp
--- NOTE | 2022-08-23 11:21 | PHA.DC.MC ---
Pharmacy Service has performed discharge medication reconciliation and counseling for this patient. 1. ASPIRIN 81MG PO BREAKFAST The patient's discharge medication list was reviewed for discrepancies and discrepancies were resolved. Home Medications levothyroxine 75 mcg tablet 112 mcg PO DAILY thyroid 02/13/14 omeprazole 20 mg capsule,delayed release 20 mg PO QHS gerd 02/13/14 atorvastatin 10 mg tablet 10 mg PO QHS cholesterol 08/22/22 aspirin 81 mg chewable tablet 81 mg PO BREAKFAST 30 days #30 tabs 08/23/22 The patient was counseled on the following discharge medications and changes in medications for homegoing were reviewed. The Reason for Use, instructions for use, and potential side effects were reviewed for all new medications. The patient's questions regarding all of their medications were answered. The patient was able to verbally demonstrate an understanding of their discharge medications.
== END 2022-08-23 08:03 | disposition home or self-care (01) ==
LOC: ED 16:41 → PCU 08-23 07:03
PROVIDERS: Admitting Provider Internal Medicine; Emergency Provider Emergency Medicine; PCP Family Medicine; Visit Provider Internal Medicine
DX: G45.9 Transient cerebral ischemic attack, unspecified (principal); E78.00 Pure hypercholesterolemia, unspecified; R27.0 Ataxia, unspecified; R47.1 Dysarthria and anarthria; E03.9 Hypothyroidism, unspecified; K21.9 Gastro-esophageal reflux disease without esophagitis; Z79.890 Hormone replacement therapy; Z79.899 Other long term (current) drug therapy; R03.0 Elevated blood-pressure reading, without diagnosis of hypertension; Z23 Encounter for immunization
CPT/HCPCS: 70450; 70496; 70498; 70551; 71045; 80048; 84484; 85025; 85610; 85730; 93005; 93306; 96374; 97161; 99218; 99285; Q9957; Q9967; 90686; A4216; C8929; G0378

== ENCOUNTER → 2024-01-08 | Outpatient (CLI) | payer MEDICARE, BC, SELFPAY ==
--- NOTE | 2024-01-08 14:16 | STRESSREP ---
Stress Test Report Date: 01/08/2024 Procedure: Exercise tolerance test/imaging study Indications: Dyspnea Consent: Per the patient Procedure: The patient exercised on a Sly protocol for 6 minutes and 50 seconds achieving a peak heart rate of 134 bpm (88% predicted maximal heart rate) with a peak blood pressure 190/78 mmHg and a peak MET capacity of 9.5 METs. The baseline ECG demonstrated normal sinus rhythm, recorded branch block. The peak exercise ECG demonstrated no significant ischemic changes. EKG during recovery revealed no significant ischemic changes [There were no cardiac dysrhythmias pretest, during exercise, or recovery]. The functional capacity was considered normal for age. There was [no complaint of chest discomfort during exercise or recovery]. The examination was discontinued secondary to dyspnea. Impression: 1. Technically adequate (percent predicted maximal heart rate greater than 85%) exercise tolerance test 2. Stress test is negative for exercise-induced EKG changes of ischemia 3. The test test is negative for exercise-induced chest pain 4. Functional capacity is normal for age 5. Nuclear images pending Myocardial perfusion imaging study: Technique: The patient was injected with 14.8 mCi of technetium 99m Cardiolite and subsequently rest SPECT Cardiolite nuclear imaging was obtained in the horizontal long, vertical long, and short axis views. The patient exercised on a Sly protocol. Please see above for details. The patient was injected with 44.7 mCi of technetium 99m Cardiolite and subsequently stress SPECT Cardiolite nuclear imaging was obtained in the horizontal long, vertical long, and short axis views. A gated Cardiolite study at peak stress was obtained. Interpretation: Rest and stress SPECT Cardiolite nuclear imaging status post realignment, normalization, and attenuation correction, demonstrates mildly decreased radioisotope uptake in the apex and anterior wall on the stress images compared to the rest images suggestive of ischemia in this territory. The gated Cardiolite study demonstrates no significant regional wall motion abnormalities. The reported LVEF is 58%. Impression: 1. There is evidence of mild ischemia involving the anterior wall and apex. 2. The gated Cardiolite study reports an LVEF of 58%. This note was generated with [employer] software. It may contain incorrect words, spelling, and punctuation that were not noted in checking the note before signing.
== END | disposition home or self-care (01) ==
LOC: CVS 06:35
PROVIDERS: PCP Family Medicine; Referring Provider Clinical Nurse Specialist Adult Health; Visit Provider Clinical Nurse Specialist Adult Health
DX: R06.09 Other forms of dyspnea (principal)
CPT/HCPCS: 78452; 93017; A9500; A4216

== ENCOUNTER → 2024-01-29 | Outpatient (CLI) | payer MEDICARE, BC, SELFPAY ==
--- NOTE | 2024-01-29 12:31 | CT_ITS ---
STUDY: CT CHEST WITH CONTRAST REASON FOR EXAM: Male, 68 years old. ABN RESULT OTHER TESTING limited chest over read only RADIATION DOSAGE (If Supplied By Facility): CTDIvol = ( 51.33 ) mGy, DLP = ( 4296.08 ) mGycm TECHNIQUE: Transaxial imaging was performed following intravenous administration of IV 55mL [id number]-370. Individualized dose optimization techniques were used for this CT. COMPARISON: No relevant priors. FINDINGS: CHEST Mild degree of dependent bibasilar atelectasis. There is no demonstrated pleural abnormality. There are calcifications of the coronary arteries. There are small lymph nodes within the mediastinum, which are normal in size and morphology most compatible with reactive lymph hyperplasia. Normal hilar regions. Normal unenhanced pulmonary arteries. There is atherosclerotic calcification of the aortic arch. There are degenerative changes of the thoracic spine. Diffuse fatty infiltration of the liver. IMPRESSION: Coronary artery calcifications. Small mediastinal lymph nodes. Atelectasis at the lung bases. Electronically Signed: Adolfo Aquino MD at 15:22 EDT , STUDY: CT WITHOUT CONTRAST REASON FOR EXAM: Male, 68 years old. ABN RESULT OTHER TESTING limited chest over read only RADIATION DOSAGE (If Supplied By Facility): CTDIvol = ( 51.33 ) mGy, DLP = ( 4296.08 ) mGycm TECHNIQUE: Transaxial imaging was performed without the administration of intravenous contrast material. Individualized dose optimization techniques were used for this CT. COMPARISON: No relevant priors. FINDINGS: CHEST Mild bibasilar dependent atelectasis. There is no demonstrated pleural abnormality. There are calcifications of the coronary arteries. There are small lymph nodes within the mediastinum, which are normal in size and morphology most compatible with reactive lymph hyperplasia. Normal hilar regions. Normal unenhanced pulmonary arteries. Normal aorta arch and descending thoracic aorta. There are degenerative changes of the thoracic spine. Fatty infiltration of the liver. CT/Limited Chest CT Cardiac Only IMPRESSION: Coronary artery calcification. Electronically Signed: Adolfo Aquino MD at 15:23 EDT ,
[2024-01-29 12:39] VITALS: BP 130/92; PULSE 68; RESP 16; O2SAT 98; BMI 32.5
[2024-01-29 12:59] VITALS: PULSE 66
[2024-01-29] MEDS: Nitroglycerin SL (ED/IMG/CATH) 0.4 MG TABLET SL (12:59)
[2024-01-29 13:05] LABS: CREATININE FINGERSTICK 1.1 mg/dL (0.70-1.30); EGFR FINGERSTICK > 60.0000 mL/min (>60)
[2024-01-29 13:12] VITALS: BP 127/75; PULSE 71; RESP 16; O2SAT 94
--- NOTE | 2024-01-29 18:29 | CCTA.WCONT ---
CCTA w/Cont Coronary Arteries Date of Study:: 01/29/24 Abnormal stress test Coronary Calcium Scoring: High-resolution Computed Tomographic imaging of the chest was performed on [01/29/2024], with particular attention paid to the coronary arteries. Intravenous contrast agent was administered per protocol and images reconstructed in 0.625 mm slices and displayed. There was mild motion artifact noted LEFT MAIN CORONARY ARTERY: This arose from the left coronary cusp. There was minimal calcification noted. It bifurcated into left anterior descending artery and the left circumflex artery. [] LEFT ANTERIOR DESCENDING CORONARY ARTERY: The left anterior descending artery had an area of mild proximal eccentric calcification. The rest of the vessel did not appear to have significant atherosclerotic plaquing present. [] LEFT CIRCUMFLEX CORONARY ARTERY: This was a nondominant vessel with minimal focal atherosclerotic plaquing. [] RIGHT CORONARY ARTERY: This was a dominant medium size vessel with moderate nonobstructive atherosclerotic calcification noted in the midsegment. The vessel continued to the bifurcation. [] CORONARY CALCIUM SCORE: 407 Left main total score 10 Left anterior descending artery total score 43 Left circumflex artery total score 1 Right coronary artery total score 353 Percentile ranking 50th to 75th percentile []
== END | disposition home or self-care (01) ==
LOC: CT 12:27
PROVIDERS: PCP Family Medicine; Referring Provider Internal Medicine Cardiovascular Disease; Visit Provider Internal Medicine Cardiovascular Disease
DX: R94.39 Abnormal result of other cardiovascular function study (principal)
CPT/HCPCS: 75571; 75574; 76380; Q9967

== ENCOUNTER → 2024-07-08 | Outpatient (CLI) | payer MEDICARE, BC, SELFPAY ==
--- NOTE | 2024-07-08 14:52 | ECHOD_ITS ---
Reason For Study: Dyspnea/SOB Procedure This was a 2D Doppler, Color Flow transthoracic echocardiogram. Exam performed in department. Left Ventricle Mild concentric left ventricular hypertrophy. Normal LV size. The left ventricular ejection fraction is 60 %. Normal diastology for age. Right Ventricle Normal right ventricle. Atria The left and right atria are normal. Mitral Valve Mild mitral annular calcification. Trivial mitral valve insufficiency. Tricuspid Valve Trivial tricuspid valve insufficiency. Unable to estimate RV systolic pressure due to insufficient tricuspid regurgitant envelope. Aortic Valve Trivial aortic valve insufficiency. Pulmonic Valve The pulmonic valve is not well visualized. Great Vessels Mildly dilated aortic root. Pericardium/Pleural No pericardial effusion. MMode/2D Measurements & Calculations LVIDd: 5.2 cm IVSd: 1.5 cm Ao root diam: 3.9 cm LVIDs: 3.8 cm LVPWd: 1.0 cm LA dimension: 3.9 cm RVDd: 4.2 cm FS: 28.1 % LAV(MOD-bp): 44.6 ml LVAd ap4: 37.0 cm2 SV(MOD-sp4): 75.8 ml LAV(MOD-bp) Indexed: 19.4 ml/m2 LVLd ap4: 9.1 cm LAV(MOD-sp2): 42.7 ml EDV(MOD-sp4): 121.8 ml LAV(MOD-sp4): 42.0 ml EDV(sp4-el): 128.2 ml LVAs ap4: 21.0 cm2 LVLs ap4: 8.1 cm ESV(MOD-sp4): 46.0 ml ESV(sp4-el): 46.0 ml EF(MOD-sp4): 62.2 % EF(sp4-el): 64.1 % SV(sp4-el): 82.2 ml Ao sinus diam: 3.[address] Junction: 3.1 cm LA dimension(2D): 3.1 cm LA A4 area: 17.1 cm2 RA A4 area: 14.4 cm2 TAPSE: 1.8 cm Time Measurements MV dec time: 0.24 sec Doppler Measurements & Calculations MV E max toby: 55.9 cm/sec Lat Peak E' Toby: 10.8 cm/sec Med Peak E' Toby: 6.6 cm/sec MV A max toby: 69.8 cm/sec E/E' lat: 5.2 E/E' med: 8.4 MV E/A: 0.80 MV V2 max: 90.8 cm/sec MV P1/2t max toby: 60.2 cm/sec Ao V2 max: 130.7 cm/sec MV max P.3 mmHg MV P1/2t: 80.8 msec Ao max P.8 mmHg MV V2 mean: 37.4 cm/sec MV dec slope: 218.2 cm/sec2 Ao V2 mean: 86.3 cm/sec MV mean P.69 mmHg Ao mean P.5 mmHg MV V2 VTI: 30.2 cm MVA(P1/2t): 2.7 cm2 Ao V2 VTI: 28.2 cm AV (velocity ratio): 0.82 LV V1 max: 99.1 cm/sec PA V2 max: 102.9 cm/sec LV V1 max P.9 mmHg LV V1 mean P.8 mmHg LV V1 mean: 58.9 cm/sec LV V1 VTI: 23.2 cm ECHO/Echo Complete Interpretation Summary Mild concentric left ventricular hypertrophy. The left ventricular ejection fraction is 60 %. Mild mitral annular calcification. Mildly dilated aortic root. Ordering Physician: Laly Amaya Referring Physician: Laly Amaya Performed By: Sachin Juarez [facility]
== END | disposition home or self-care (01) ==
LOC: CVS 14:51
PROVIDERS: PCP Family Medicine; Referring Provider Internal Medicine Cardiovascular Disease; Visit Provider Internal Medicine Cardiovascular Disease
DX: R06.02 Shortness of breath (principal)
CPT/HCPCS: 93306

== ENCOUNTER → 2025-01-21 | Outpatient (CLI) | payer MEDICARE, BC, SELFPAY ==
[2025-01-21 10:41] LABS: Cholesterol 139 mg/dL (<=200); High Density Lipoprotein 31 mg/dL; Low Density Lipoprotein Calc. 75 mg/dL; Triglycerides 161 mg/dL; Very Low Density Lipoprotein 32 mg/dL (5-40); cholesterol:hdl ratio screen 4.43
[2025-01-21 11:07] LABS: ALB/GLOB Ratio 1.5 RATIO (0.9-2.4); AST(SGOT) 28 U/L (<=37); Alanine Aminotransfer ALT/SGPT 23 U/L (<=46); Albumin, Serum 4.4 g/dL (3.4-4.8); Alkaline Phosphatase 93 U/L (40-129); Anion Gap 12 (5-15); BUN 20 mg/dL (4-19); BUN/Creat Ratio 17.5 RATIO (10-20); Carbon Dioxide 25.5 mmol/L (21.0-32.0); Chloride 107 mmol/L (98-108); Creatinine, Serum 1.15 mg/dL (0.70-1.20); EST Glomerular Filtration Rate 68 (>60); Globulin 2.8 g/dL (2.2-4.2); Glucose 101 mg/dL (70-99); Potassium 4.1 mmol/L (3.3-5.1); Protein, Total 7.2 g/dL (5.9-8.4); Sodium Level 144 mmol/L (133-145)
== END | disposition home or self-care (01) ==
LOC: LAB 09:24
PROVIDERS: PCP Family Medicine; Referring Provider Internal Medicine Cardiovascular Disease; Visit Provider Internal Medicine Cardiovascular Disease
DX: I10 Essential (primary) hypertension (principal); E78.5 Hyperlipidemia, unspecified
CPT/HCPCS: 36415; 80053; 80061